=== PATIENT | female | born 1955 | race American Indian/Alaskan Native ===

== ENCOUNTER 2021-07-20 06:22 | Inpatient (IN) | payer MEDICARE ==
[2021-07-20 08:09] LABS: Hematocrit 37.6 % (30.3-42.9); Hemoglobin 12.5 gm/dl (10.1-14.3); Mean Corpuscular HGB Conc 33 % (30-34); Mean Corpuscular Volume 81 fl (79-97); Platelet Count 190 K/mm3 (140-440); Red Blood Count 4.65 M/mm3 (3.65-5.03)
--- NOTE | 2021-07-20 08:16 | XRay Report ---
CHEST 2 VIEWS INDICATION: Chest Pain. COMPARISON: 05/31/2018 FINDINGS: Support devices: None. Heart: Heart size is at the upper limits of normal. Lungs/pleura: Small to medium left pleural effusion and trace right pleural effusion are identified. There are minor bibasilar atelectatic changes but no obvious infiltrate. No pneumothorax. Additional findings: None. IMPRESSION: Borderline heart size. Bilateral pleural effusions as described. Consider mild volume overload or CHF . Signer Name: Hany Ceballos Jr, MD Signed: 07/20/2021 8:12 AM Workstation Name: [id number]
[2021-07-20 08:20] LABS: INR 1.11 (0.87-1.13)
[2021-07-20 08:36] LABS: Albumin 4.1 g/dL (3.9-5); Calcium 9.1 mg/dL (8.4-10.2)
[2021-07-20 08:47] LABS: Chol/HDL Ratio 4.28 %
[2021-07-20 08:58] LABS: Red Cell Distribution Width 20.4 % (13.2-15.2)
[2021-07-20] MEDS ORDERED: ONDANSETRON 4 MG/2 ML INJ IV ONE (09:18)
[2021-07-20] MEDS ORDERED: FAMOTIDINE 20 MG/2 ML INJ IV ONE ×2 (09:18→14:00)
--- NOTE | 2021-07-20 09:27 | Emergency Department Report ---
ED General Adult HPI - General Chief complaint: Chest Pain Stated complaint: CHEST PAIN PUI?: No Time Seen by Provider: 07/20/21 09:05 Source: patient, RN notes reviewed, old records reviewed Mode of arrival: Wheelchair Limitations: No Limitations - History of Present Illness Initial comments: The patient was evaluated in the emergency department for symptoms described in the history of present illness. He/she was evaluated in the context of the global COVID-19 pandemic, which necessitated consideration that the patient samreen ht be at risk for infection with the virus that causes COVID-19. Institutional protocols and algorithms that pertain to the evaluation of patients at risk for COVID-19 are in a state of rapid change based on information released by regulatory bodies including the CDC and federal and state organizations. These policies and algorithms were followed during the patient's care in the emergency department. Please note that these policies, procedures and recommendations changed on a rapid basis. Primary CARE doctor: Dr Berry Nephrology: Dr Colbert Cardiology: Dr Baldwin Past medical history: Chronic renal insufficiency, hypertension (on aspirin, Norvasc, Coreg), CHF, unknown ejection fraction, known history of saccular abdominal aortic aneurysm, does not currently have a vascular surgeon. The patient is a 65-year-old female who presents to the ER with a complaint of nausea, vomiting, chest pain The patient states her chest pain is left-sided and radiates to her arm and neck. There is mild nausea, vomiting, the patient denies diaphoresis. The patient denies leg pain or leg swelling. She reports that she had a cardiac stress test around 4 months ago. She thinks it was unremarkable. She reports that she recently went to one of the [facility], and "they did not do anything for me." The patient reports that she has nausea and vomiting, and then "my heart starts to hurt me." On review of systems, no Covid symptoms, has not received COVID-19 vaccination, no dysuria, does endorse abdominal pain and cramping. -: Gradual, hour(s), days(s) Location: chest Radiation: neck, extremity Quality: aching Consistency: intermittent Improves with: medication, rest Worsens with: movement - Related Data Previous Rx's Medication Instructions Recorded Last Taken Type AtorvaSTATin [Lipitor] 40 mg PO QHS 30 Days #30 tab 07/23/21 Unknown Rx Docusate Sodium [Colace CAP] 100 mg PO BID 30 Days #60 cap 07/23/21 Unknown Rx Furosemide [Lasix] 20 mg PO BID 30 Days #60 tablet 07/23/21 Unknown Rx ISOSORBIDE MONOnitrate [Imdur ER] 30 mg PO QDAY 30 Days #30 tab 07/23/21 Unknown Rx Spironolactone [Aldactone] 25 mg PO QDAY 30 Days #30 tablet 07/23/21 Unknown Rx calcitrioL [Rocaltrol] 0.5 mcg PO QDAY 30 Days #30 cap 07/23/21 Unknown Rx carvediloL [Coreg] 3.125 mg PO BID 30 Days #60 tablet 07/23/21 Unknown Rx hydrALAZINE [Apresoline TAB] 25 mg PO Q8HR 30 Days #90 tab 07/23/21 Unknown Rx Allergies Allergy/AdvReac Type Severity Reaction Status Date / Time morphine Allergy Unknown Verified 07/20/21 07:16 Penicillins Allergy Itching Verified 07/20/21 07:16 ED Review of Systems ROS: Stated complaint: CHEST PAIN Other details as noted in HPI Constitutional: malaise. denies: fever Eyes: denies: eye discharge ENT: denies: epistaxis Respiratory: shortness of breath Cardiovascular: chest pain Gastrointestinal: abdominal pain, nausea, vomiting. denies: diarrhea Genitourinary: denies: dysuria Musculoskeletal: myalgia Neurological: weakness Psychiatric: anxiety Hematological/Lymphatic: denies: easy bleeding ED Past Medical Hx - Past Medical History Hx Hypertension: Yes Hx Heart Attack/AMI: No (stent x1) Hx Congestive Heart Failure: No Hx Diabetes: No Hx Deep Vein Thrombosis: No Hx Renal Disease: Yes (left kidney no function, right has decreased function) Hx Asthma: No Hx COPD: No Hx HIV: No Additional medical history: gout, water retention - Surgical History Hx Coronary Stent: No Hx Pacemaker: No Hx Internal Defibrillator: No - Social History Smoking Status: Current Every Day Smoker - Medications Home Medications: Home Medications Medication Instructions Recorded Confirmed Last Taken Type AtorvaSTATin [Lipitor] 40 mg PO QHS 30 Days #30 tab 07/23/21 Unknown Rx Docusate Sodium [Colace CAP] 100 mg PO BID 30 Days #60 cap 07/23/21 Unknown Rx Furosemide [Lasix] 20 mg PO BID 30 Days #60 tablet 07/23/21 Unknown Rx ISOSORBIDE MONOnitrate [Imdur ER] 30 mg PO QDAY 30 Days #30 tab 07/23/21 Unknown Rx Spironolactone [Aldactone] 25 mg PO QDAY 30 Days #30 tablet 07/23/21 Unknown Rx calcitrioL [Rocaltrol] 0.5 mcg PO QDAY 30 Days #30 cap 07/23/21 Unknown Rx carvediloL [Coreg] 3.125 mg PO BID 30 Days #60 tablet 07/23/21 Unknown Rx hydrALAZINE [Apresoline TAB] 25 mg PO Q8HR 30 Days #90 tab 07/23/21 Unknown Rx ED Physical Exam - General Limitations: Physical Limitation General appearance: alert, anxious - Head Head exam: Present: atraumatic, normocephalic - Eye Eye exam: Present: normal appearance, EOMI. Absent: nystagmus - ENT ENT exam: Present: normal exam, normal orophraynx, mucous membranes moist, normal external ear exam - Neck Neck exam: Present: normal inspection, full ROM. Absent: tenderness, meningismus - Respiratory Respiratory exam: Present: rales, chest wall tenderness - Cardiovascular Cardiovascular Exam: Present: normal rhythm, bradycardia, normal heart sounds. Absent: tachycardia, irregular rhythm, systolic murmur, diastolic murmur, rubs, gallop - GI/Abdominal GI/Abdominal exam: Present: soft, tenderness, other (There is lower abdominal tenderness. There is no rebound, guarding or peritoneal). Absent: distended, guarding, rebound, rigid, normal bowel sounds, pulsatile mass - Extremities Exam Extremities exam: Present: normal inspection, other (2+ pulses noted in the bilateral upper and lower extremities. There is no palpable cord. negative Homans sign. Muscular compartments are soft. The pelvis is stable.). Absent: tenderness, joint swelling, calf tenderness - Back Exam Back exam: Present: normal inspection. Absent: tenderness, CVA tenderness (R), CVA tenderness (L), paraspinal tenderness, vertebral tenderness - Neurological Exam Neurological exam: Present: alert, oriented X3, normal gait, other (No facial droop. Tongue midline. Extraocular movements intact bilaterally. Facial sensation intact to light touch in V1, V2, V3 distribution bilaterally. 5 and a 5 strength in 4 extremities. Sensation intact to light touch in 4 extremities.). Absent: motor sensory deficit - Psychiatric Psychiatric exam: Present: anxious - Skin Skin exam: Present: warm, dry, intact, normal color. Absent: rash ED Course Vital Signs 07/20/21 07/20/21 07/20/21 08:44 08:45 09:25 Temperature 97.6 F Pulse Rate 91 H 98 H Respiratory 21 15 Rate Blood Pressure 132/71 Blood Pressure [Left] O2 Sat by Pulse 100 100 Oximetry 07/20/21 07/20/21 07/20/21 13:05 13:15 13:30 Temperature Pulse Rate 61 54 L Respiratory 26 H 15 Rate Blood Pressure Blood Pressure [Left] O2 Sat by Pulse 92 94 91 Oximetry 07/20/21 07/20/21 07/20/21 14:00 14:15 14:31 Temperature Pulse Rate 61 77 Respiratory 22 15 Rate Blood Pressure 166/93 175/78 Blood Pressure [Left] O2 Sat by Pulse 93 93 94 Oximetry 07/20/21 07/20/21 07/20/21 14:45 15:01 15:15 Temperature Pulse Rate 53 L 53 L 49 L Respiratory 13 10 L 20 Rate Blood Pressure 166/93 163/74 175/78 Blood Pressure [Left] O2 Sat by Pulse 93 93 89 Oximetry 07/20/21 07/20/21 07/20/21 15:31 15:45 16:01 Temperature Pulse Rate 61 58 L Respiratory 15 12 Rate Blood Pressure 169/64 163/74 170/68 Blood Pressure [Left] O2 Sat by Pulse 99 94 87 Oximetry 07/20/21 07/20/21 07/20/21 16:15 16:31 16:45 Temperature Pulse Rate 64 Respiratory 26 H Rate Blood Pressure 169/64 158/86 170/68 Blood Pressure [Left] O2 Sat by Pulse 92 92 89 Oximetry 07/20/21 07/20/21 07/20/21 17:01 17:15 17:31 Temperature Pulse Rate 85 Respiratory 24 Rate Blood Pressure 175/91 158/86 158/86 Blood Pressure [Left] O2 Sat by Pulse 95 92 92 Oximetry 07/20/21 07/20/21 07/20/21 17:45 18:01 18:15 Temperature Pulse Rate 65 61 57 L Respiratory 23 16 27 H Rate Blood Pressure 175/91 167/98 167/98 Blood Pressure [Left] O2 Sat by Pulse 97 96 87 Oximetry 07/20/21 07/20/21 07/20/21 18:31 18:45 19:01 Temperature Pulse Rate 61 65 56 L Respiratory 13 14 12 Rate Blood Pressure 165/95 167/98 162/82 Blood Pressure [Left] O2 Sat by Pulse 96 97 91 Oximetry 07/20/21 07/20/21 07/20/21 19:15 19:31 19:45 Temperature Pulse Rate 55 L 59 L 57 L Respiratory 12 24 19 Rate Blood Pressure 165/95 151/71 151/71 Blood Pressure [Left] O2 Sat by Pulse 90 92 94 Oximetry 07/20/21 07/20/21 07/20/21 20:01 20:15 20:31 Temperature Pulse Rate 62 57 L 55 L Respiratory 17 16 12 Rate Blood Pressure 162/78 162/78 162/78 Blood Pressure [Left] O2 Sat by Pulse 96 92 88 Oximetry 07/20/21 07/20/21 07/20/21 20:45 21:01 21:15 Temperature Pulse Rate 56 L 54 L 55 L Respiratory 15 12 17 Rate Blood Pressure 162/78 162/78 162/78 Blood Pressure [Left] O2 Sat by Pulse 82 L 88 89 Oximetry 07/20/21 07/20/21 07/20/21 21:31 21:45 22:01 Temperature Pulse Rate 57 L 58 L 61 Respiratory 14 11 L 11 L Rate Blood Pressure 162/78 162/78 162/78 Blood Pressure [Left] O2 Sat by Pulse 89 91 92 Oximetry 07/20/21 07/20/21 07/20/21 22:09 22:15 22:31 Temperature Pulse Rate 61 64 57 L Respiratory 21 13 Rate Blood Pressure 156/85 156/85 163/84 Blood Pressure [Left] O2 Sat by Pulse 92 93 Oximetry 07/20/21 07/20/21 07/20/21 22:35 22:44 22:45 Temperature Pulse Rate 56 L 61 Respiratory 12 14 Rate Blood Pressure 163/84 163/84 Blood Pressure [Left] O2 Sat by Pulse 93 95 93 Oximetry 07/20/21 07/20/21 07/20/21 23:01 23:15 23:31 Temperature Pulse Rate 60 64 62 Respiratory 13 14 12 Rate Blood Pressure 138/67 138/67 140/68 Blood Pressure [Left] O2 Sat by Pulse 93 92 92 Oximetry 07/20/21 07/21/21 07/21/21 23:45 00:01 00:15 Temperature Pulse Rate 63 61 62 Respiratory 13 14 15 Rate Blood Pressure 140/68 150/75 150/75 Blood Pressure [Left] O2 Sat by Pulse 95 94 94 Oximetry 07/21/21 07/21/21 07/21/21 00:31 00:45 01:01 Temperature Pulse Rate 62 61 65 Respiratory 13 12 15 Rate Blood Pressure 135/64 135/64 143/70 Blood Pressure [Left] O2 Sat by Pulse 94 94 93 Oximetry 07/21/21 07/21/21 07/21/21 01:15 01:31 01:45 Temperature Pulse Rate 62 63 64 Respiratory 13 15 14 Rate Blood Pressure 143/70 134/75 134/75 Blood Pressure [Left] O2 Sat by Pulse 93 93 93 Oximetry 07/21/21 07/21/21 07/21/21 02:01 02:15 02:31 Temperature Pulse Rate 66 66 65 Respiratory 17 16 15 Rate Blood Pressure 151/71 151/71 159/78 Blood Pressure [Left] O2 Sat by Pulse 93 95 94 Oximetry 07/21/21 07/21/21 07/21/21 02:45 03:01 03:15 Temperature Pulse Rate 65 67 71 Respiratory 14 20 21 Rate Blood Pressure 159/78 146/118 146/118 Blood Pressure [Left] O2 Sat by Pulse 92 99 98 Oximetry 07/21/21 07/21/21 07/21/21 03:31 03:45 04:01 Temperature Pulse Rate 71 70 68 Respiratory 18 18 17 Rate Blood Pressure 144/71 144/71 147/66 Blood Pressure [Left] O2 Sat by Pulse 92 90 92 Oximetry 07/21/21 07/21/21 07/21/21 04:15 04:31 04:45 Temperature Pulse Rate 74 64 67 Respiratory 18 15 16 Rate Blood Pressure 147/66 147/66 147/66 Blood Pressure [Left] O2 Sat by Pulse 90 90 86 Oximetry 07/21/21 07/21/21 07/21/21 05:01 05:15 05:31 Temperature Pulse Rate 66 66 67 Respiratory 32 H 15 15 Rate Blood Pressure 126/52 126/52 119/62 Blood Pressure [Left] O2 Sat by Pulse 88 88 87 Oximetry 07/21/21 07/21/21 07/21/21 05:45 05:47 06:01 Temperature Pulse Rate 69 66 71 Respiratory 14 14 Rate Blood Pressure 119/62 126/52 139/68 Blood Pressure [Left] O2 Sat by Pulse 88 90 Oximetry 07/21/21 07/21/21 07/21/21 06:15 06:31 06:45 Temperature Pulse Rate 69 68 66 Respiratory 14 17 16 Rate Blood Pressure 139/68 118/45 118/45 Blood Pressure [Left] O2 Sat by Pulse 89 91 94 Oximetry 07/21/21 07/21/21 07/21/21 07:01 09:09 09:11 Temperature Pulse Rate 66 80 Respiratory 17 16 Rate Blood Pressure 115/56 Blood Pressure 134/60 [Left] O2 Sat by Pulse 90 100 100 Oximetry 07/21/21 07/21/21 07/21/21 11:30 15:31 15:41 Temperature Pulse Rate 71 Respiratory Rate Blood Pressure 159/78 132/65 132/65 Blood Pressure [Left] O2 Sat by Pulse 95 92 Oximetry 07/21/21 07/21/21 07/21/21 15:51 16:01 16:11 Temperature Pulse Rate Respiratory Rate Blood Pressure 130/72 130/72 130/72 Blood Pressure [Left] O2 Sat by Pulse 95 94 97 Oximetry 07/21/21 07/21/21 07/21/21 16:21 16:31 16:41 Temperature Pulse Rate Respiratory Rate Blood Pressure 114/92 114/92 114/92 Blood Pressure [Left] O2 Sat by Pulse 95 96 94 Oximetry 07/21/21 07/21/21 07/21/21 16:51 17:01 17:11 Temperature Pulse Rate Respiratory Rate Blood Pressure 144/78 144/78 144/78 Blood Pressure [Left] O2 Sat by Pulse 96 92 93 Oximetry 07/21/21 07/21/21 07/21/21 17:21 17:31 17:41 Temperature Pulse Rate Respiratory Rate Blood Pressure 148/79 148/79 148/79 Blood Pressure [Left] O2 Sat by Pulse 96 96 92 Oximetry 07/21/21 07/21/21 07/21/21 17:51 18:01 18:11 Temperature Pulse Rate Respiratory Rate Blood Pressure 137/66 137/66 137/66 Blood Pressure [Left] O2 Sat by Pulse 94 91 95 Oximetry 07/21/21 07/21/21 07/21/21 18:21 18:31 18:41 Temperature Pulse Rate Respiratory Rate Blood Pressure 139/75 139/75 139/75 Blood Pressure [Left] O2 Sat by Pulse 94 93 95 Oximetry 07/21/21 07/21/21 07/21/21 18:51 19:01 19:11 Temperature Pulse Rate Respiratory Rate Blood Pressure 146/72 146/72 146/72 Blood Pressure [Left] O2 Sat by Pulse 97 96 95 Oximetry 07/21/21 07/21/21 07/21/21 19:21 19:30 19:40 Temperature Pulse Rate Respiratory Rate Blood Pressure 135/72 135/72 135/72 Blood Pressure [Left] O2 Sat by Pulse 95 92 95 Oximetry 07/21/21 07/21/21 07/21/21 19:53 20:01 20:11 Temperature Pulse Rate Respiratory Rate Blood Pressure 135/72 135/72 135/72 Blood Pressure [Left] O2 Sat by Pulse 98 93 91 Oximetry 07/21/21 07/21/21 07/21/21 20:21 20:31 20:41 Temperature Pulse Rate Respiratory Rate Blood Pressure 135/72 135/72 135/72 Blood Pressure [Left] O2 Sat by Pulse 93 96 95 Oximetry 07/21/21 07/21/21 07/21/21 20:51 21:01 21:11 Temperature Pulse Rate 60 59 L 59 L Respiratory 17 18 21 Rate Blood Pressure 150/77 150/77 150/77 Blood Pressure [Left] O2 Sat by Pulse 91 92 98 Oximetry 07/21/21 07/21/21 07/21/21 21:21 21:31 21:41 Temperature Pulse Rate 58 L 66 52 L Respiratory 20 26 H 22 Rate Blood Pressure 142/68 142/68 142/68 Blood Pressure [Left] O2 Sat by Pulse 98 92 93 Oximetry 07/21/21 07/21/21 07/21/21 21:51 22:01 22:11 Temperature Pulse Rate 55 L 62 58 L Respiratory 12 23 16 Rate Blood Pressure 135/63 135/63 135/63 Blood Pressure [Left] O2 Sat by Pulse 97 84 93 Oximetry 07/21/21 07/21/21 07/21/21 22:21 22:31 22:41 Temperature Pulse Rate 58 L 56 L 57 L Respiratory 18 16 19 Rate Blood Pressure 153/83 153/83 153/83 Blood Pressure [Left] O2 Sat by Pulse 92 93 96 Oximetry 07/21/21 07/21/21 07/21/21 22:51 23:01 23:11 Temperature Pulse Rate 59 L 64 53 L Respiratory 14 23 17 Rate Blood Pressure 144/77 144/77 144/77 Blood Pressure [Left] O2 Sat by Pulse 96 88 98 Oximetry 07/21/21 07/21/21 07/21/21 23:20 23:31 23:41 Temperature Pulse Rate 48 L 60 59 L Respiratory 19 21 18 Rate Blood Pressure 150/77 141/67 141/67 Blood Pressure [Left] O2 Sat by Pulse 97 95 97 Oximetry - Reevaluation(s) Reevaluation #1: 07/20/21 09:28 Differential diagnosis, including but not limited to: Obstruction, colitis, diverticulitis, urinary tract infection, GERD, gastritis, hiatal hernia, pneumonia, costochondritis, coronary artery disease, azotemia, uremia Assessment and plan: 65-year-old female with known renal insufficiency, with chest pain, nausea, vomiting, and abdominal pain. She is not currently tachycardic, tachypneic. She is not hypoxic. This is unlikely to be a pulmonary embolism. She has equal pulses in the upper and lower extremities, and no pulsatile abdominal mass. She has a known history of saccular lower abdominal aortic aneurysm. She has an appropriate blood pressure. She also has crackles and rales. Suspect component of azotemia, uremia, and possible cardiorenal syndrome. We will treat her pain, administer high-dose diuretics, obtain CT scan of the abdomen pelvis without IV contrast, request urinalysis. Her initial EKG is abnormal with a known first-degree AV block, and a prolonged QTC. Its limited by motion artifact. Have requested repeat EKG. Have requested temperature. I recommended admission to the medical service once initial diagnostics have resulted. I discussed this plan of care with the patient. She has articulated understanding. She is agreeable to this plan of care.. 07/20/21 09:29 07/20/21 10:37 CT scan abdomen pelvis suggest pleural effusions, with a possible loculated component. Her infrarenal saccular aneurysm is now 3.5 cm. High-dose Lasix has been ordered. Fluoroquinolones contraindicated given AAA. As a third-generation cephalosporin, ceftriaxone is structurally dissimilar to penicillin, and is statistically unlikely to cause anaphylactic or anaphylactoid reaction. We will therefore medicate empirically with ceftriaxone and azithromycin. Contacted vascular surgeon on-call, Dr. Douglas. Have discussed the patient's history, physical, laboratory studies, and radiology studies. The patient is likely presenting with natural history of untreated AAA, and it does not require emergent intervention at this time. Vascular surgery will follow in consultation, however, they do request nonemergent CT imaging with contrast to better evaluate this patient's vascular anatomy. I will defer to the inpatient team to acquire this study. Have been contacted nephrology on-call, Dr. Tiffany Goyal We discussed the patient's history, physical, laboratory studies and imaging studies. His group will follow in consultation. Assessment and plan: 65-year-old female, with what appears to be end-stage renal disease at this point in time, with probable cardiorenal syndrome, abdominal pain, chest pain, and fluid overload, requires admission to the medical service for medical optimization, cardiac risk ratification, and multiple consultations, including hospital medicine, nephrology, and vascular surgery. Reevaluation #2: 07/20/21 10:51 Extensive discussion had with patient regarding findings and my plan of care. She is agreeable. Her allergy to morphine is "not like the way it makes me feel." The patient denies anaphylactic or anaphylactoid reactions to morphine. She states "I can take any pain medication but morphine. 0.25 mg of hydromorphone ordered. Hospital physician will be paged to arrange admission. 07/20/21 11:20 Dr Hogue to admit to [facility] ED Medical Decision Making - Lab Data Result diagrams: 07/20/21 07:59 07/23/21 05:02 Vital Signs 07/20/21 07/20/21 08:44 08:45 Pulse Rate 91 H 98 H Respiratory 21 15 Rate Blood Pressure 132/71 O2 Sat by Pulse 100 100 Oximetry Vital Signs 07/20/21 07/20/21 08:44 08:45 Pulse Rate 91 H 98 H Respiratory 21 15 Rate Blood Pressure 132/71 O2 Sat by Pulse 100 100 Oximetry Lab Results 07/20/21 07/20/21 07/20/21 Range/Units 07:59 07:59 07:59 WBC 3.1 L (4.5-11.0) K/mm3 RBC 4.65 (3.65-5.03) M/mm3 Hgb 12.5 (10.1-14.3) gm/dl Hct 37.6 (30.3-42.9) % MCV 81 (79-97) fl MCH 27 L (28-32) pg MCHC 33 (30-34) % RDW 20.4 H (13.2-15.2) % Plt Count 190 (140-440) K/mm3 PT 14.8 (12.2-14.9) Sec. INR 1.11 (0.87-1.13) Sodium 139 (137-145) mmol/L Potassium 4.0 (3.6-5.0) mmol/L Chloride 106.8 (98-107) mmol/L Carbon Dioxide 20 L (22-30) mmol/L Anion Gap 16 mmol/L BUN 53 H (7-17) mg/dL Creatinine 4.2 H (0.6-1.2) mg/dL Estimated GFR 13 ml/min BUN/Creatinine Ratio 13 % Glucose 100 (65-100) mg/dL Calcium 9.1 (8.4-10.2) mg/dL Total Bilirubin 0.50 (0.1-1.2) mg/dL AST 14 (5-40) units/L ALT 10 (7-56) units/L Alkaline Phosphatase 81 (35-129) units/L Troponin T 0.035 H (0.00-0.029) ng/mL Total Protein 6.7 (6.3-8.2) g/dL Albumin 4.1 (3.9-5) g/dL Albumin/Globulin Ratio 1.6 % Triglycerides 66 (2-149) mg/dL Cholesterol 210 H (50-199) mg/dL LDL Cholesterol Direct 161 H (50-130) mg/dL HDL Cholesterol 49 (40-59) mg/dL Cholesterol/HDL Ratio 4.28 % - EKG Data -: EKG Interpreted by [facility] - EKG Data 07/20/21 09:24 The EKG today is interpreted at 07: 2 5 AM This is a sinus rhythm, bradycardia, with a rate of 55 bpm. There is a normal axis, there is a first-degree AV block, and a prolonged QTC. There is significant motion artifact. This is an abnormal EKG. This is not a STEMI. When compared to prior EKG from 05/31/2018 First-degree AV block is unchanged. Prolonged QTC is unchanged. Pseudonormalized T waves. - Radiology Data Radiology results: pending, report reviewed, image reviewed CHEST 2 VIEWS INDICATION: Chest Pain. COMPARISON: 05/31/2018 FINDINGS: Support devices: None. Heart: Heart size is at the upper limits of normal. Lungs/pleura: Small to medium left pleural effusion and trace right pleural effusion are identified. There are minor bibasilar atelectatic changes but no obvious infiltrate. No pneumothorax. Additional findings: None. IMPRESSION: Borderline heart size. Bilateral pleural effusions as described. Consider mild volume overload or CHF. Signer Name: Hany Ceballos Jr, MD Signed: 07/20/2021 7:12 AM Workstation Name: [id number] [facility] [address] [place] [address] Cat Scan Report Signed Patient: MARY LOU JAMES MR#: [id number] 151 : 1955 Acct:[id number] Age/Sex: 62 / F ADM Date: 05/31/18 Loc: ED Attending Dr: Ordering Physician: KAITLIN ROSE MD Date of Service: 05/31/18 Procedure(s): CT abdomen pelvis wo con Accession Number(s): [id number] cc: KAITLIN ROSE MD CT ABDOMEN PELVIS WITHOUT CONTRAST: HISTORY: abdominal pain. COMPARISON: 10/15/13. TECHNIQUE: Helical CT in 1.25mm intervals without IV contrast. Sagittal and coronal reconstructions. FINDINGS: Lung bases: Mild cardiomegaly and small bilateral pleural effusions have developed. Liver: Unremarkable. Biliary system: Cholecystectomy. No biliary dilatation. Pancreas: Normal. Spleen: Normal. Kidneys/ureters/bladder: The kidneys appear borderline atrophic. No focal renal lesion, nephrolithiasis or hydronephrosis. The ureters and bladder are unremarkable. Adrenal glands: Normal. Aorta: A saccular outpouching along the left lateral border of the distal aorta has developed since the previous exam. This appears to represent a saccular aneurysm measuring 2.4 cm in diameter. There is no evidence for rupture. Mild atherosclerotic disease in the distal aorta and bilateral iliac systems is again noted. Intestines: Unremarkable given no oral contrast was administered. Mild diverticulosis of the colon is noted. Appendix: Normal. Pelvic viscera: Normal. Ascites: None. Adenopathy: None. Musculoskeletal: Intact. IMPRESSION: Mild CHF. No acute process is appreciated. Saccular aneurysm of the distal abdominal aorta. Consider further evaluation with contrast examination. Chronic renal parenchymal disease. Mild diverticulosis of the colon. Transcribed By: TTR Dictated By: HANY CEBALLOS JR, MD Electronically Authenticated By: HANY CEBALLOS JR, MD Signed Date/Time: 05/31/18 1202 DD/ 1158 TD/TT: 05/31/18 1202 [facility] [address] [id number] Cat Scan Report Signed Patient: MARY LOU JAMES MR#: [id number] 151 : 1955 Acct:[id number] Age/Sex: 65 / F ADM Date: 07/20/21 Loc: ED Attending Dr: Ordering Physician: PA DAWKINS MD Date of Service: 07/20/21 Procedure(s): CT abdomen pelvis wo con Accession Number(s): [id number] cc: PA DAWKINS MD CT ABDOMEN AND PELVIS WITHOUT CONTRAST INDICATION / CLINICAL INFORMATION: abd pain n/v. TECHNIQUE: Axial CT images were obtained through the abdomen and pel vis without IV contrast. All CT scans at this location are performed using CT dose reduction for ALARA by means of automated exposure control. COMPARISON: CT from 05/31/2018. FINDINGS: LOWER CHEST: Heart is enlarged with interlobular septal thickening. Asymmetric airspace opacity within the lingula and left lower lobe may reflect volume loss or infiltrate. Small moderate right and small left pleural effusions. The left pleural effusion appears partially loculated. LIVER: No significant abnormality GALLBLADDER/BILIARY TREE: Cholecystectomy. PANCREAS: No significant abnormality SPLEEN: No significant abnormality ADRENALS: No significant abnormality KIDNEYS / URETER: There is bilateral renal atrophy. Kidneys demonstrate otherwise unremarkable unenhanced appearance. There is no acute abnormality. URINARY BLADDER: No significant abnormality REPRODUCTIVE ORGANS: No significant abnormality STOMACH / BOWEL: Colonic diverticulosis without evidence of diverticulitis. Small bowel is normal in caliber. The appendix is normal in caliber. LYMPH NODES: No significant adenopathy. 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 OTHER: No free air, free fluid, or focal fluid collection is identified. SKELETAL SYSTEM: No acute osseous findings. IMPRESSION: 1. CHF/volume overload with bibasilar pleural effusions and interstitial edema. The left pleural effusion appears partially loculated, and there is asymmetric consolidation within the left lower lobe and lingula. Recommend correlation for superimposed infiltrate. 2. No acute abnormality of the abdomen or pelvis. 3. Interval enlargement in previously described prominent saccular aneurysm arising from the infrarenal abdominal aorta (now measuring 3.5 cm; previously measuring 2.5 cm in 2018). Surgical consultation is recommended. 4. Other incidental findings as above. Signer Name: Dao Osman MD Signed: 07/20/2021 9:55 AM Workstation Name: [id number] Transcribed By: JS Dictated By: DAO OSMAN MD Electronically Authenticated By: DAO OSMAN MD Signed Date/Time: 07/20/21954 DD/ 6 Critical Care Time: Yes Critical care time in (mins) excluding proc time.: 35 Critical care attestation.: If time is entered above; I have spent that time in minutes in the direct care of this critically ill patient, excluding procedure time. ED Disposition Clinical Impression: Elevated troponin, Abdominal pain, Nausea and vomiting, CKD (chronic kidney disease), Chest pain, Pleural effusion, Saccular aneurysm CHF (congestive heart failure) Qualifiers: Heart failure type: systolic Heart failure chronicity: acute Qualified Code(s): I50.21 - Acute systolic (congestive) heart failure Disposition: ADMITTED INPATIENT Is pt being admited?: Yes Does the pt Need Aspirin: Yes Condition: Serious Heart Score - HEART Score History: Moderately suspicious EKG: Non-specific Age: 45-65 Risk factors: 1-2 risk factors Troponin: 1-3x normal limit HEART Score: 5 - EKG Read Time Time EKG Completed: 07:30 EKG Read Time: 07:30 - Critical Actions Critical Actions: 4-6 pts:12-16.6% risk of adverse cardiac event. Should be admitted
[2021-07-20] MEDS ORDERED: FUROSEMIDE 40 MG/4 ML INJ IV ONE (09:31)
[2021-07-20] MEDS ORDERED: ASPIRIN 81 MG TAB CHEW PO ONE ×2 (09:32→14:00)
--- NOTE | 2021-07-20 09:59 | Cat Scan Report ---
CT ABDOMEN AND PELVIS WITHOUT CONTRAST INDICATION / CLINICAL INFORMATION: abd pain n/v. TECHNIQUE: Axial CT images were obtained through the abdomen and pelvis without IV contrast. All CT scans at this location are performed using CT dose reduction for ALARA by means of automated exposure control. COMPARISON: CT from 05/31/2018. FINDINGS: LOWER CHEST: Heart is enlarged with interlobular septal thickening. Asymmetric airspace opacity withi n the lingula and left lower lobe may reflect volume loss or infiltrate. Small moderate right and sma ll left pleural effusions. The left pleural effusion appears partially loculated. LIVER: No significant abnormality GALLBLADDER/BILIARY TREE: Cholecystectomy. PANCREAS: No significant abnormality SPLEEN: No significant abnormality ADRENALS: No significant abnormality KIDNEYS / URETER: There is bilateral renal atrophy. Kidneys demonstrate otherwise unremarkable unenha nced appearance. There is no acute abnormality. URINARY BLADDER: No significant abnormality REPRODUCTIVE ORGANS: No significant abnormality STOMACH / BOWEL: Colonic diverticulosis without evidence of diverticulitis. Small bowel is normal in caliber. The appendix is normal in caliber. LYMPH NODES: No significant adenopathy. VASCULATURE: Interval enlargement in previously described saccular aneurysm arising from the left asp ect of the infrarenal abdominal aorta, now measuring 3.5 cm in AP dimension (series 2 image 108); pre viously measured 2.[address] from 2018. OTHER: No free air, free fluid, or focal fluid collection is identified. SKELETAL SYSTEM: No acute osseous findings. IMPRESSION: 1. CHF/volume overload with bibasilar pleural effusions and interstitial edema. The left pleural effu lolita appears partially loculated, and there is asymmetric consolidation within the left lower lobe an d lingula. Recommend correlation for superimposed infiltrate. 2. No acute abnormality of the abdomen or pelvis. 3. Interval enlargement in previously described prominent saccular aneurysm arising from the infraren al abdominal aorta (now measuring 3.5 cm; previously measuring 2.5 cm in 2018). Surgical consultation is recommended. 4. Other incidental findings as above. Signer Name: Ricky Osman MD Signed: 07/20/2021 9:55 AM Workstation Name: [id number]
[2021-07-20] MEDS ORDERED: AZITHROMYCIN/NS 500 MG/250 ML 500 MG/250 ML BAG IV ONE ×2 (10:13→14:00)
[2021-07-20] MEDS ORDERED: cefTRIAXone/NS 1 GM/50 ML 1 GM/50 ML BAG IV ONE ×2 (10:13→14:00)
[2021-07-20] MEDS ORDERED: HYDROmorphone 1 MG/1 ML INJ IV ONE (10:50)
--- NOTE | 2021-07-20 11:22 | Consultation ---
History of Present Illness - Reason for Consult Consult date: 07/20/21 chronic renal failure - History of Present Illness This is a 65 year old female who presents to hospital with a chief complaint of chest pain, nausea and vomiting. Patient is currently in E.R being evaluated, but of note, patient's serum creatinine is noted to be elevated at 4.3 with a GFR level of 13 ml/min. Patient's fender mechanic apprentice outpatiently is Dr. Colbert. Patient's serum creatinine was 3.8 and 3.9 in May 2018. Patient's CXR shows Bilateral Plueral Effusions, mild volume overload or CHF. We are being consulted for management of this patient's advanced renal disease. Past History Past Medical History: heart failure, hypertension, other (hypertension, h yperlipidemia, renal failure (CKD; hx of MEÑO requiring HD (appx 4 years ago))) Medications and Allergies Allergies Allergy/AdvReac Type Severity Reaction Status Date / Time morphine Allergy Unknown Verified 07/20/21 07:16 Penicillins Allergy Itching Verified 07/20/21 07:16 Home Medications Medication Instructions Recorded Confirmed Last Taken Type AtorvaSTATin [Lipitor] 40 mg PO QHS 05/31/18 05/31/18 05/30/18 History Docusate Sodium [Colace CAP] 100 mg PO BID 05/31/18 05/31/18 05/30/18 History Metoprolol [Lopressor TAB] 25 mg PO DAILY 05/31/18 05/31/18 05/30/18 History Sodium Bicarbonate 650 mg PO BID 05/31/18 05/31/18 05/30/18 History calcitrioL [Rocaltrol] 0.5 mcg PO QDAY 05/31/18 05/31/18 05/30/18 History hydrALAZINE [Apresoline TAB] 25 mg PO Q8HR 05/31/18 05/31/18 05/30/18 History Albuterol Sulfate [Ventolin HFA] 2 puff IH Q4H PRN #1 pump 06/04/18 Unknown Rx Nicotine [Habitrol] 21 mg TD QDAY@0600 30 Days patch 06/04/18 Unknown Rx Nystatin Cream [Mycostatin Cream] 1 applic TP TID 7 Days tube 06/04/18 Unknown Rx traMADoL [Ultram 50 MG tab] 50 mg PO Q12H PRN #10 tablet 06/04/18 Unknown Rx Review of Systems Constitutional: weight gain, fatigue, weakness, no fever, no chills, no sweats Ears, nose, mouth and throat: no ear pain, no ear discharge, no tinnitis, no decreased hearing, no nose pain, no nasal congestion Breasts: deferred Cardiovascular: chest pain, edema, shortness of breath, dyspnea on exertion, no orthopnea, no palpitations, no rapid/irregular heart beat, no syncope, no lightheadedness Respiratory: shortness of breath, no cough with sputum, no excessive sputum, no hemoptysis Gastrointestinal: nausea, vomiting, no constipation, no change in bowel habits, no hematemesis Genitourinary Female: no pelvic pain, no flank pain, no menorrhagia, no dysuria, no urinary frequency, no urgency, no stress incontinence, no post void dribbling Musculoskeletal: no neck stiffness, no neck pain, no shooting arm pain, no arm numbness/tingling, no low back pain Integumentary: no rash, no pruritis, no redness, no sores, no wounds Neurological: weakness, no transient paralysis, no paralysis, no parathesias, no numbness, no tingling, no seizures, no syncope Psychiatric: no anxiety, no memory loss, no change in sleep habits, no sleep disturbances, no insomnia, no hypersomnia Endocrine: no cold intolerance, no heat intolerance, no polyphagia, no excessive thirst, no polydipsia, no polyuria Hematologic/Lymphatic: no easy bruising, no easy bleeding, no lymphadenopathy Exam - Vital Signs Vital signs: Vital Signs Pulse Resp Pulse Ox 91 H 21 100 07/20/21 08:44 07/20/21 08:44 07/20/21 08:44 - General Appearance General appearance: well-developed, appears stated age, fatigue EENT: ATNC, PERRL, hearing intact, vision intact Neck: Present: neck supple Respiratory: Decreased Breath Sounds Heart: S1S2 Gastrointestinal: Present: normoactive bowel sounds Integumentary: warm and dry Neurologic: alert and oriented x3 Musculoskeletal: Present: joint swelling Results - Lab Results 07/20/21 07:59 07/20/21 07:59 Most recent lab results WBC 3.1 K/mm3 (4.5-11.0) L 07/20/21 07:59 RBC 4.65 M/mm3 (3.65-5.03) 07/20/21 07:59 Hgb 12.5 gm/dl (10.1-14.3) 07/20/21 07:59 Hct 37.6 % (30.3-42.9) 07/20/21 07:59 MCV 81 fl (79-97) 07/20/21 07:59 MCH 27 pg (28-32) L 07/20/21 07:59 MCHC 33 % (30-34) 07/20/21 07:59 RDW 20.4 % (13.2-15.2) H 07/20/21 07:59 Plt Count 190 K/mm3 (140-440) 07/20/21 07:59 PT 14.8 Sec. (12.2-14.9) 07/20/21 07:59 INR 1.11 (0.87-1.13) 07/20/21 07:59 Sodium 139 mmol/L (137-145) 07/20/21 07:59 Potassium 4.0 mmol/L (3.6-5.0) 07/20/21 07:59 Chloride 106.8 mmol/L (98-107) 07/20/21 07:59 Carbon Dioxide 20 mmol/L (22-30) L 07/20/21 07:59 Anion Gap 16 mmol/L 07/20/21 07:59 BUN 53 mg/dL (7-17) H 07/20/21 07:59 Creatinine 4.2 mg/dL (0.6-1.2) H 07/20/21 07:59 Estimated GFR 13 ml/min 07/20/21 07:59 BUN/Creatinine Ratio 13 % 07/20/21 07:59 Glucose 100 mg/dL (65-100) 07/20/21 07:59 Calcium 9.1 mg/dL (8.4-10.2) 07/20/21 07:59 Total Bilirubin 0.50 mg/dL (0.1-1.2) 07/20/21 07:59 AST 14 units/L (5-40) 07/20/21 07:59 ALT 10 units/L (7-56) 07/20/21 07:59 Alkaline Phosphatase 81 units/L (35-129) 07/20/21 07:59 Troponin T 0.028 ng/mL (0.00-0.029) 07/20/21 10:25 Total Protein 6.7 g/dL (6.3-8.2) 07/20/21 07:59 Albumin 4.1 g/dL (3.9-5) 07/20/21 07:59 Albumin/Globulin Ratio 1.6 % 07/20/21 07:59 Triglycerides 66 mg/dL (2-149) 07/20/21 07:59 Cholesterol 210 mg/dL (50-199) H 07/20/21 07:59 LDL Cholesterol Direct 161 mg/dL (50-130) H 07/20/21 07:59 HDL Cholesterol 49 mg/dL (40-59) 07/20/21 07:59 Cholesterol/HDL Ratio 4.28 % 07/20/21 07:59 Assessment and Plan Assessment: Chest Pain Nausea/Vomiting Advanced Chronic Kidney Disease, stage 4-5 Hypertension CHF AAA Plan: -Renal labs reviewed. Serum creatinine 4.3 with a GFR of 13 ml/min -Serum creatinine in May 2018 was 3.8 and 3.9, has advanced renal disease -Outpatient fender mechanic apprentice is Dr. Colbert. She states she was on dialysis temporarily 4 years ago and after her outpatient fender mechanic apprentice perfomed a 24 hour urine collection for creatinine clearance they both decided that dialysis should be terminated. Patient states that her GFR has remained at 13-14 ml/min for 4 years now and states that she is against dialysis and would only do it temporarily for no more than 4 months but overall is against dialysis -Discussed with patient that if she should receive any contrast or dye that is required for any vascular procedure, there is a strong chance that her renal function would get worse requiring hemodialysis initiation. Also explained to patient that IV fluids could not be given to prepare for such procedure in advance as she is volume overloaded and instead needs diuretic. Patient voiced understanding. States was on Lasix at home and states she skipped it some days. -CXR showed- Bilateral Pleural Effusions, mild volume overload or CHF -Start Lasix 40 mg IV daily -Obtain renal ultrasound -Obtain daily weights -Avoid nephrotoxic agents -Renally dose medications -Monitor I/O's daily -Plan of care reviewed by Dr. Downey
--- NOTE | 2021-07-20 11:32 | History and Physical Report ---
History of Present Illness Chief complaint: I am not feeling good History of present illness: 65 YO Female with HTN, HLD, CKD, Nicotine Dependence, RI, CAD S/P Stent Placement presents to ED for evaluation. Patient is reports "I am not feeling good this morning". Patient states that she has experienced generalized w eakness, nausea, chest discomfort, body aches. Patient knowledges decreased exercise tolerance, dyspnea on exertion. Patient transported to [facility] via private vehicle for further care and evaluation of the aforementioned symptoms. The patient was seen and evaluated in the emergency department. All lab and imaging studies reviewed. Patient found to have MEÑO with ATN with possible development of end-stage renal disease, metabolic acidosis, as well as clinical symptoms consistent with CHF decompensation. Patient admitted to telemetry and initiated on CHF protocol. Nephrology team consulted in ED. Cardiology team consulted in ED. vascular surgery consulted in the ED for possible dialysis catheter placement. Patient denies fever, chills, chest pain, palpitation, productive cough, skin rash, recent ill contacts, or known exposure to COVID-19. Patient has not been vaccinated against coronavirus. Past admission on 05/21/2018 reviewed. All medication listed at time of admission has been reconciled. Advanced care planning conducted in ED. Past History Past Medical History: heart failure, hypertension, hyperlipidemia, renal failure, other (hypertension, hyperlipidemia, renal failure (CKD; hx of MEÑO requiring HD (appx 4 years ago))) Past Surgical History: Other (Cardiac stent placement) Social history: , smoking. denies: alcohol abuse, prescription drug abuse Family history: hypertension Medications and Allergies Allergies Allergy/AdvReac Type Severity Reaction Status Date / Time morphine Allergy Unknown Verified 07/20/21 07:16 Penicillins Allergy Itching Verified 07/20/21 07:16 Home Medications Medication Instructions Recorded Confirmed Last Taken Type AtorvaSTATin [Lipitor] 40 mg PO QHS 05/31/18 05/31/18 05/30/18 History Docusate Sodium [Colace CAP] 100 mg PO BID 05/31/18 05/31/18 05/30/18 History Metoprolol [Lopressor TAB] 25 mg PO DAILY 05/31/18 05/31/18 05/30/18 History Sodium Bicarbonate 650 mg PO BID 05/31/18 05/31/18 05/30/18 History calcitrioL [Rocaltrol] 0.5 mcg PO QDAY 05/31/18 05/31/18 05/30/18 History hydrALAZINE [Apresoline TAB] 25 mg PO Q8HR 05/31/18 05/31/18 05/30/18 History Albuterol Sulfate [Ventolin HFA] 2 puff IH Q4H PRN #1 pump 06/04/18 Unknown Rx Nicotine [Habitrol] 21 mg TD QDAY@0600 30 Days patch 06/04/18 Unknown Rx Nystatin Cream [Mycostatin Cream] 1 applic TP TID 7 Days tube 06/04/18 Unknown Rx traMADoL [Ultram 50 MG tab] 50 mg PO Q12H PRN #10 tablet 06/04/18 Unknown Rx Review of Systems Constitutional: fatigue, weakness, other Ears, nose, mouth and throat: no ear pain, no ear discharge, no decreased hearing, no nasal congestion Breasts: no change in shape, no mass Cardiovascular: shortness of breath, dyspnea on exertion, decreased exercise tolerance Respiratory: no cough, no excessive sputum, no hemoptysis Gastrointestinal: nausea, vomiting, no abdominal pain, no diarrhea, no constipation Genitourinary Female: no pelvic pain, no flank pain, no dysuria, no urinary frequency, no urgency Rectal: no pain, no incontinence Integumentary: no rash, no redness, no wounds, no jaundice Neurological: no transient paralysis, no weakness, no numbness, no tingling, no seizures, no syncope Psychiatric: no anxiety, no change in sleep habits, no sleep disturbances, no insomnia, no hypersomnia, no change in appetite, no change in libido, no suicidal ideation, no disorientation Endocrine: no cold intolerance, no excessive thirst, no polydipsia, no polyuria, no nocturia Hematologic/Lymphatic: no easy bruising, no easy bleeding, no lymphadenopathy Allergic/Immunologic: no urticaria, no allergic rhinitis, no anaphylaxis, no an gioedema Exam - Constitutional Vitals: Temp Pulse Resp BP Pulse Ox 97.6 F 98 H 15 132/71 100 07/20/21 09:25 07/20/21 08:45 07/20/21 08:45 07/20/21 08:45 07/20/21 08:45 General appearance: Present: mild distress - EENT Eyes: Present: PERRL ENT: hearing intact, clear oral mucosa - Neck Neck: Present: supple, normal ROM - Respiratory Respiratory effort: normal Respiratory: bilateral: diminished, rales - Cardiovascular Heart Sounds: Present: S1 & S2. Absent: rub, click - Extremities Extremities: pulses symmetrical, No edema Peripheral Pulses: within normal limits - Abdominal General gastrointestinal: Present: soft, non-tender, non-distended, normal bowel sounds Female genitourinary: Present: normal - Integumentary Integumentary: Present: clear, warm, dry - Musculoskeletal Musculoskeletal: gait normal, strength equal bilaterally - Psychiatric Psychiatric: appropriate mood/affect, intact judgment & insight - Neurologic Neurologic: CNII-XII intact, moves all extremities HEART Score - HEART Score EKG: Non-specific Age: 45-65 Risk factors: 1-2 risk factors Troponin: Troponin T 0.028 ng/mL (0.00-0.029) 07/20/21 10:25 Troponin: 1-3x normal limit - Critical Actions Critical Actions: 4-6 pts:12-16.6% risk of adverse cardiac event. Should be admitted Results - Labs CBC & Chem 7: 07/20/21 07:59 07/20/21 07:59 Labs: Abnormal lab results 07/20/21 07/20/21 Range/Units 07:59 07:59 WBC 3.1 L (4.5-11.0) K/mm3 MCH 27 L (28-32) pg RDW 20.4 H (13.2-15.2) % Carbon Dioxide 20 L (22-30) mmol/L BUN 53 H (7-17) mg/dL Creatinine 4.2 H (0.6-1.2) mg/dL Troponin T 0.035 H (0.00-0.029) ng/mL Cholesterol 210 H (50-199) mg/dL LDL Cholesterol Direct 161 H (50-130) mg/dL Assessment and Plan - Patient Problems (1) CHF (congestive heart failure) Current Visit: Yes Status: Acute Qualifiers: Heart failure type: systolic Heart failure chronicity: acute Qualified Code(s): I50.21 - Acute systolic (congestive) heart failure Plan to address problem: CHF protocol: Chest x-ray, BNP, thyroid panel, magnesium level, blood pressure control, diuresis with Lasix, strict I's/O, monitor urine output every shift, daily weight, afterload reduction, cardiology team consulted. (2) ESRD (end stage renal disease) Current Visit: Yes Status: Acute Plan to address problem: Nephrology team consulted in ED, dialysis as per renal team, strict I's/O, monitor urine output every shift, avoid nephrotoxic agents. (3) Acidosis Current Visit: Yes Status: Acute Plan to address problem: Dialysis as per renal team, continue current care (4) Nicotine dependence Current Visit: Yes Status: Acute Qualifiers: Nicotine product type: cigarettes Substance use status: in withdrawal Qualified Code(s): F17.213 - Nicotine dependence, cigarettes, with withdrawal Plan to address problem: Smoking cessation counseling, nicotine patch, behavior change counseling, +15 minutes. (5) Nausea and vomiting Current Visit: Yes Status: Acute Plan to address problem: Supportive care, dialysis as per renal team, antiemetic therapy as needed. (6) DVT prophylaxis Current Visit: Yes Status: Acute Plan to address problem: SCD to bilateral lower extremities while in bed, patient is ambulatory (7) Advance care planning Current Visit: Yes Status: Acute Plan to address problem: Disease education conducted, care plan discussed, diagnosis discussed, prognosis discussed, patient is full code, patient knowledges understanding agreement with care plan, +30 minutes.
[2021-07-20] MEDS ORDERED: oxyCODONE /ACETAMINOPHEN 5-325MG TAB PO PRN (12:30)
[2021-07-20] MEDS ORDERED: ACETAMINOPHEN 325 MG TAB PO PRN (12:30)
[2021-07-20] MEDS ORDERED: ALBUTEROL 2.5 MG/3 ML NEBU IH PRN (12:30)
[2021-07-20] MEDS ORDERED: HYDROmorphone 1 MG/1 ML INJ IV PRN (12:30)
[2021-07-20] MEDS ORDERED: FUROSEMIDE 40 MG/4 ML INJ IV SCH (13:00)
--- NOTE | 2021-07-20 14:02 | Consultation ---
History of Present Illness - Reason for Consult Consult date: 07/20/21 Abdominal aortic aneurysm Requesting physician: PA DAWKINS - History of Present Illness 65 YO Female with HTN, HLD, CKD, Nicotine Dependence, [place], CAD S/P Stent Placement The patient states her chest pain is left-sided and radiates to her arm and neck. There is mild nausea, vomiting, the patient denies diaphoresis. The patient denies leg pain or leg swelling. She reports that she had a cardiac stress test around 4 months ago. She thinks it was unremarkable. She reports that she recently went to one of the [facility], and "they did not do anything for me." The patient reports that she has nausea and vomiting, and then "my heart starts to hurt me." On review of systems, no Covid symptoms, has not received COVID-19 vaccination, no dysuria, does endorse abdominal pain and cramping. -: Gradual, hour(s), days(s) Location: chest Radiation: neck, extremity Quality: aching Consistency: intermittent Improves with: medication, rest Worsens with: movement Past medical history: Chronic renal insufficiency Hypertension (on aspirin, Norvasc, Coreg) CHF, unknown ejection fraction History of saccular abdominal aortic aneurysm, does not currently have a vascular surgeon. Vascular consulted for abdominal aortic aneurysm. Patient reports that she is having chest discomfort, but denies abdominal pain. She reports low back pain, but this is predominantly in her hips. No abdominal pain radiating to the back. CT scan in 2018 demonstrates 3.9 cm infrarenal abdominal aorta, upon my measurement. Patient has heavily smoked between this time and now, and now has a CT scan demonstrating infrarenal abdominal aortic aneurysm which, upon my measurement, appears to be about 5.4 cm. Discussed with patient that given the size and the increase in size, this would benefit from endovascular treatment. Patient has a palpable right dorsalis pedis pulse with a nonpalpable left pedal pulse. She denies claudication. This is likely because she becomes short of breath and tired prior to experiencing claudication. Unfortunately, patient has chronic kidney disease which will make imaging quite complicated. This was discussed with patient. Past History Past Medical History: heart failure, hypertension, other (hypertension, hyperlipidemia, renal failure (CKD; hx of MEÑO requiring HD (appx 4 years ago))) Medications and Allergies Allergies Allergy/AdvReac Type Severity Reaction Status Date / Time morphine Allergy Unknown Verified 07/20/21 07:16 Penicillins Allergy Itching Verified 07/20/21 07:16 Home Medications Medication Instructions Recorded Confirmed Last Taken Type AtorvaSTATin [Lipitor] 40 mg PO QHS 05/31/18 05/31/18 05/30/18 History Docusate Sodium [Colace CAP] 100 mg PO BID 05/31/18 05/31/18 05/30/18 History Metoprolol [Lopressor TAB] 25 mg PO DAILY 05/31/18 05/31/18 05/30/18 History Sodium Bicarbonate 650 mg PO BID 05/31/18 05/31/18 05/30/18 History calcitrioL [Rocaltrol] 0.5 mcg PO QDAY 05/31/18 05/31/18 05/30/18 History hydrALAZINE [Apresoline TAB] 25 mg PO Q8HR 05/31/18 05/31/18 05/30/18 History Albuterol Sulfate [Ventolin HFA] 2 puff IH Q4H PRN #1 pump 06/04/18 Unknown Rx Nicotine [Habitrol] 21 mg TD QDAY@0600 30 Days patch 06/04/18 Unknown Rx Nystatin Cream [Mycostatin Cream] 1 applic TP TID 7 Days tube 06/04/18 Unknown Rx traMADoL [Ultram 50 MG tab] 50 mg PO Q12H PRN #10 tablet 06/04/18 Unknown Rx Active Meds: Active Medications Acetaminophen (Acetaminophen 325 Mg Tab) 650 mg PO Q4H PRN PRN Reason: Pain MILD(1-3)/Fever >100.5/VERA Albuterol (Albuterol 2.5 Mg/3 Ml Nebu) 2.5 mg IH Q4HRT PRN PRN Reason: Shortness Of Breath Atorvastatin Calcium (Atorvastatin 40 Mg Tab) 40 mg PO QHS ZOLTAN Calcitriol (Calcitriol 0.5 Mcg Cap) 0.5 mcg PO QDAY ZOLTAN Docusate Sodium (Docusate Sodium 100 Mg Cap) 100 mg PO BID ZOLTAN Furosemide (Furosemide 40 Mg/4 Ml Inj) 40 mg IV DAILY@0600 ZOLTAN Hydralazine HCl (Hydralazine 25 Mg Tab) 25 mg PO Q8HR ZOLTAN Hydromorphone HCl (Hydromorphone 1 Mg/1 Ml Inj) 0.5 mg IV Q24H PRN PRN Reason: Pain , Severe (7-10) Ceftriaxone Sodium (Rocephin/Ns 1 Gm/50 Ml) 1 gm in 50 mls @ 100 mls/hr IV ONCE ONE; Protocol Stop: 07/20/21 14:29 Azithromycin (Zithromax/Ns) 500 mg in 250 mls @ 250 mls/hr IV ONCE ONE; Protocol Stop: 07/20/21 14:59 Metoprolol Tartrate (Metoprolol Tartrate 25 Mg Tab) 25 mg PO DAILY ZOLTAN Nicotine (Nicotine 21 Mg/24 Hr Patch) 21 mg TD QDAY@0600 ZOLTAN Nystatin (Nystatin Cream 15 Gm Tube) 1 applic TP TID ZOLTAN Ondansetron HCl (Ondansetron 4 Mg/2 Ml Inj) 4 mg IV Q8H PRN PRN Reason: Nausea And Vomiting Oxycodone/Acetaminophen (Oxycodone /Acetaminophen 5-325mg Tab) 1 tab PO Q12H PRN PRN Reason: Pain, Moderate (4-6) Sodium Bicarbonate (Sodium Bicarbonate 650 Mg Tab) 650 mg PO BID ZOLTAN Sodium Chloride (Sodium Chloride 0.9% 10 Ml Flush Syringe) 10 ml IV BID ZOLTAN Sodium Chloride (Sodium Chloride 0.9% 10 Ml Flush Syringe) 10 ml IV PRN PRN PRN Reason: LINE FLUSH Review of Systems All systems: negative (see HPI) Exam - Constitutional Vitals: Temp Pulse Resp BP Pulse Ox 97.6 F 98 H 15 132/71 100 07/20/21 09:25 07/20/21 08:45 07/20/21 08:45 07/20/21 08:45 07/20/21 08:45 General appearance: Present: no acute distress (In wheelchair) - EENT Eyes: Present: EOM intact ENT: hearing intact - Respiratory Respiratory effort: normal - Extremities Extremities: abnormal (see HPI) - Abdominal General gastrointestinal: Present: soft, non-tender (No abdominal pain) - Psychiatric Psychiatric: appropriate mood/affect, cooperative - Neurologic Neurologic: moves all extremities Results - Labs CBC & Chem 7: 07/20/21 07:59 07/20/21 07:59 Labs: Abnormal lab results 07/20/21 07/20/21 Range/Units 07:59 07:59 WBC 3.1 L (4.5-11.0) K/mm3 MCH 27 L (28-32) pg RDW 20.4 H (13.2-15.2) % Carbon Dioxide 20 L (22-30) mmol/L BUN 53 H (7-17) mg/dL Creatinine 4.2 H (0.6-1.2) mg/dL Troponin T 0.035 H (0.00-0.029) ng/mL Cholesterol 210 H (50-199) mg/dL LDL Cholesterol Direct 161 H (50-130) mg/dL Assessment and Plan 65-year-old female who presents with multiple medical issues including chronic kidney disease previously on dialysis, congestive heart failure, and abdominal aortic aneurysm. Her abdominal aortic aneurysm is saccular in nature and has increased in size and is now 5.4 cm in size. Given her gender and the increase in size, this is appropriate for treatment. Treatment does not need to be done emergently. Patient has no abdominal pain. Her back pain is not related to the aneurysm and appears to be related to her hips. Discussed with patient that the complicated part of her care plan other than treating her, will be imaging her. Options include MR angiogram of the abdomen pelvis with contrast (usually requires GFR greater than 30), or CT angiogram of the abdomen and pelvis with contrast. Could perform radial approach angiogram with 50 mL of nonionic contrast instead of the typical 70-100, but patient's creatinine is quite elevated and this would place her at risk for end-stage renal disease with dialysis dependence. Recommend optimizing patient medically, and then reevaluating creatinine and r enal function to determine how best to image the patient.
[2021-07-20] MEDS: hydrALAZINE 25 MG TAB PO SCH ×3 (14:06→22:09)
[2021-07-20 14:08] LABS: Creatinine,Urine 174.9 mg/dL (0.1-20.0); Protein/Creatinine Ratio,Urine 0.39
[2021-07-20] MEDS: ONDANSETRON 4 MG/2 ML INJ IV PRN ×2 (14:14→18:17)
[2021-07-20] MEDS: NYSTATIN CREAM 15 GM TUBE TP SCH ×2 (15:21→22:07)
--- NOTE | 2021-07-20 16:11 | Ultrasound Report ---
ULTRASOUND RENAL INDICATION / CLINICAL INFORMATION: renal failure. COMPARISON: CT abdomen/pelvis without contrast 07/20/2021. FINDINGS: RIGHT KIDNEY: Length = 5.3 cm. - Echogenicity: Increased. - Cortical Thickness: Thinned. - Hydronephrosis: None. - Cyst / Mass: None. - Stones: None seen. LEFT KIDNEY: Length = 7.0 cm. - Echogenicity: Increased. - Cortical Thickness: Thinned. - Hydronephrosis: None. - Cyst / Mass: None. - Stones: None seen. URINARY BLADDER: No significant abnormality. FREE FLUID: None. ADDITIONAL FINDINGS: Incidental finding of left pleural effusion. IMPRESSION: 1. Bilateral atrophic kidneys characteristic of medical renal disease. 2. Incidental finding of left pleural effusion. Scribed by: Kandy Ulloa RDMS, RVT Scribed: 07/20/2021 1:30 PM I have reviewed the images, agree with this report, and edited this report as needed. Signer Name: Eliseo Delgado DO Signed: 07/20/2021 4:07 PM Workstation Name: [id number]
[2021-07-20 16:21] LABS: Anisocytosis 1+; Total Cells Counted 100
[2021-07-20 16:22] LABS: Large Platelets Rare; Macrocytosis Few; Platelet Estimate Consistent w Auto
[2021-07-20] MEDS: FUROSEMIDE 40 MG/4 ML INJ IV SCH (18:18)
[2021-07-20 19:14] LABS: Free T4 (Free Thyroxine) 1.59 ng/dL (0.76-1.46)
[2021-07-20] MEDS: DOCUSATE SODIUM 100 MG CAP PO SCH (22:09)
[2021-07-20] MEDS: SODIUM BICARBONATE 650 MG TAB PO SCH (22:14)
[2021-07-21] MEDS: hydrALAZINE 25 MG TAB PO SCH ×2 (05:47→16:36)
[2021-07-21] MEDS: FUROSEMIDE 40 MG/4 ML INJ IV SCH (06:18)
[2021-07-21] MEDS ORDERED: METOPROLOL TARTRATE 25 MG TAB PO SCH (10:00)
--- NOTE | 2021-07-21 11:11 | Electrocardiograph Report ---
[facility] Test Date: 2021-07-20 Test Time: 07:25:02 Pat Name: MARY LOU JAMES Department: Room: [place] [address] Gender: F Bottom Stainer: : 1955 Requested By: PA DAWKINS Order Number: [id number] Reading MD: Jerald Gomez Measurements Intervals [place] Rate: 55 P: 0 MN: 321 QRS: -10 QRSD: 96 T: 26 QT: 636 QTc: 644 Interpretive Statements Sinus rhythm Sinus pause Prolonged MN interval Probable left ventricular hypertrophy Prolonged QT interval No previous ECG available for comparison Electronically Signed On 07-21-2021 11:11:30 EDT by Jerald Gomez
--- NOTE | 2021-07-21 11:13 | Progress Note ---
Assessment and Plan Assessment: Chest Pain Nausea/Vomiting Advanced Chronic Kidney Disease, stage 4-5 Hypertension CHF AAA Plan: -Renal labs reviewed. Serum creatinine 4.3 today, yesterday's was 4.2 -Serum creatinine in May 2018 was 3.8 and 3.9, has advanced renal disease, she is really end stage -Outpatient green inspector is Dr. Colbert. She states she was on dialysis temporarily 4 years ago and after her outpatient green inspector perfomed a 24 hour urine collection for creatinine clearance they both decided that dialysis should be terminated. Patient states that her GFR has remained at 13-14 ml/min for 4 years now and states that she is against dialysis and would only do it temporarily for no more than 4 months but overall is against dialysis -Discussed with patient that if she should receive any contrast or dye that is required for any vascular procedure, there is a strong chance that her renal function would get worse requiring hemodialysis initiation. Also explained to patient that IV fluids could not be given to prepare for such procedure in advance as she is volume overloaded and instead needs diuretic. Patient voiced understanding. States was on Lasix at home and states she skipped it some days. -CXR showed- Bilateral Pleural Effusions, mild volume overload or CHF -On Lasix 40 mg IV daily- will switch to Lasix 20 mg IV BID -Renal ultrasound- No hydronephrosis. Medical renal disease. -Obtain daily weights -Urine lytes reviewed. No urine eosinophils. -Avoid nephrotoxic agents -Renally dose medications -Monitor I/O's daily-asked nurse to measure UOP -Will need HD in very near future as she really has end stage renal disease, but she does not want to commit to dialysis, can be discharged possibly tomorrow from nephrology standpoint to f/u with her outpatient green inspector within 5-7 days of discharge -Plan of care reviewed by Dr. Downey Subjective Date of service: 07/21/21 Principal diagnosis: CKD stage 5 Interval history: Patient seen lying in bed. Reviewed her renal labs. Patient requested for Lasix to be in twice daily doses after discussing with her that her renal function was now 12%. Patient is very opinionated about her renal care and states she does not need dialysis at this time. Objective - Vital Signs Vital signs: Vital Signs - 12hr 07/20/21 07/20/21 07/20/21 23:15 23:31 23:45 Pulse Rate 64 62 63 Respiratory 14 12 13 Rate Blood Pressure 138/67 140/68 140/68 Blood Pressure [Left] O2 Sat by Pulse 92 92 95 Oximetry 07/21/21 07/21/21 07/21/21 00:01 00:15 00:31 Pulse Rate 61 62 62 Respiratory 14 15 13 Rate Blood Pressure 150/75 150/75 135/64 Blood Pressure [Left] O2 Sat by Pulse 94 94 94 Oximetry 07/21/21 07/21/21 07/21/21 00:45 01:01 01:15 Pulse Rate 61 65 62 Respiratory 12 15 13 Rate Blood Pressure 135/64 143/70 143/70 Blood Pressure [Left] O2 Sat by Pulse 94 93 93 Oximetry 07/21/21 07/21/21 07/21/21 01:31 01:45 02:01 Pulse Rate 63 64 66 Respiratory 15 14 17 Rate Blood Pressure 134/75 134/75 151/71 Blood Pressure [Left] O2 Sat by Pulse 93 93 93 Oximetry 07/21/21 07/21/21 07/21/21 02:15 02:31 02:45 Pulse Rate 66 65 65 Respiratory 16 15 14 Rate Blood Pressure 151/71 159/78 159/78 Blood Pressure [Left] O2 Sat by Pulse 95 94 92 Oximetry 07/21/21 07/21/21 07/21/21 03:01 03:15 03:31 Pulse Rate 67 71 71 Respiratory 20 21 18 Rate Blood Pressure 146/118 146/118 144/71 Blood Pressure [Left] O2 Sat by Pulse 99 98 92 Oximetry 07/21/21 07/21/21 07/21/21 03:45 04:01 04:15 Pulse Rate 70 68 74 Respiratory 18 17 18 Rate Blood Pressure 144/71 147/66 147/66 Blood Pressure [Left] O2 Sat by Pulse 90 92 90 Oximetry 07/21/21 07/21/21 07/21/21 04:31 04:45 05:01 Pulse Rate 64 67 66 Respiratory 15 16 32 H Rate Blood Pressure 147/66 147/66 126/52 Blood Pressure [Left] O2 Sat by Pulse 90 86 88 Oximetry 07/21/21 07/21/21 07/21/21 05:15 05:31 05:45 Pulse Rate 66 67 69 Respiratory 15 15 14 Rate Blood Pressure 126/52 119/62 119/62 Blood Pressure [Left] O2 Sat by Pulse 88 87 88 Oximetry 07/21/21 07/21/21 07/21/21 05:47 06:01 06:15 Pulse Rate 66 71 69 Respiratory 14 14 Rate Blood Pressure 126/52 139/68 139/68 Blood Pressure [Left] O2 Sat by Pulse 90 89 Oximetry 07/21/21 07/21/21 07/21/21 06:31 06:45 07:01 Pulse Rate 68 66 66 Respiratory 17 16 17 Rate Blood Pressure 118/45 118/45 115/56 Blood Pressure [Left] O2 Sat by Pulse 91 94 90 Oximetry 07/21/21 07/21/21 09:09 09:11 Pulse Rate 80 Respiratory 16 Rate Blood Pressure Blood Pressure 134/60 [Left] O2 Sat by Pulse 100 100 Oximetry - General Appearance General appearance: well-developed, appears stated age EENT: ATNC, PERRL, hearing intact, vision intact Respiratory: Present: Decreased Breath Sounds Cardiology: S1S2 Gastrointestinal: normoactive bowel sounds Integumentary: warm and dry Neurologic: alert and oriented x3 Musculoskeletal: joint swelling - Lab 07/20/21 07:59 07/21/21 04:56 Most recent lab results Calcium 9.0 mg/dL (8.4-10.2) 07/21/21 04:56 Phosphorus 5.30 mg/dL (2.5-4.5) H 07/21/21 04:56 Magnesium 2.40 mg/dL (1.7-2.3) H 07/20/21 14:48 Urine Creatinine 174.9 mg/dL (0.1-20.0) H 07/20/21 13:15 Urine Sodium 47 mmol/L 07/20/21 13:15 Urine Total Protein 68 mg/dL (5-11.8) H 07/20/21 13:15 Medications & Allergies - Medications Allergies/Adverse Reactions: Allergies morphine Allergy (Verified 07/20/21 07:16) Unknown Penicillins Allergy (Verified 07/20/21 07:16) Itching Home Medications: Home Medications Medication Instructions Recorded Confirmed Last Taken Type AtorvaSTATin [Lipitor] 40 mg PO QHS 05/31/18 05/31/18 05/30/18 History Docusate Sodium [Colace CAP] 100 mg PO BID 05/31/18 05/31/18 05/30/18 History Metoprolol [Lopressor TAB] 25 mg PO DAILY 05/31/18 05/31/18 05/30/18 History Sodium Bicarbonate 650 mg PO BID 05/31/18 05/31/18 05/30/18 History calcitrioL [Rocaltrol] 0.5 mcg PO QDAY 05/31/18 05/31/18 05/30/18 History hydrALAZINE [Apresoline TAB] 25 mg PO Q8HR 05/31/18 05/31/18 05/30/18 History Albuterol Sulfate [Ventolin HFA] 2 puff IH Q4H PRN #1 pump 06/04/18 Unknown Rx Nicotine [Habitrol] 21 mg TD QDAY@0600 30 Days patch 06/04/18 Unknown Rx Nystatin Cream [Mycostatin Cream] 1 applic TP TID 7 Days tube 06/04/18 Unknown Rx traMADoL [Ultram 50 MG tab] 50 mg PO Q12H PRN #10 tablet 06/04/18 Unknown Rx Active Medications: Generic Name Dose Route Start Last Admin Trade Name Freq PRN Reason Stop Dose Admin Acetaminophen 650 mg 07/20/21 12:30 Acetaminophen 325 Mg Tab PO Q4H PRN Pain MILD(1-3)/Fever >100.5/VERA Albuterol 2.5 mg 07/20/21 12:30 Albuterol 2.5 Mg/3 Ml Nebu IH Q4HRT PRN Shortness Of Breath Atorvastatin Calcium 40 mg 07/20/21 22:00 07/20/21 22:09 Atorvastatin 40 Mg Tab PO 40 mg QHS ZOLTAN Administration Calcitriol 0.5 mcg 07/21/21 10:00 Calcitriol 0.5 Mcg Cap PO QDAY ZOLTAN Docusate Sodium 100 mg 07/20/21 22:00 07/20/21 22:09 Docusate Sodium 100 Mg Cap PO 100 mg BID ZOLTAN Administration Furosemide 40 mg 07/20/21 18:00 07/21/21 06:18 Furosemide 40 Mg/4 Ml Inj IV 40 mg DAILY@0600 ZOLTAN Administration Hydralazine HCl 25 mg 07/20/21 14:00 07/21/21 05:47 Hydralazine 25 Mg Tab PO Not Given Q8HR ZOLTAN Hydromorphone HCl 0.5 mg 07/20/21 12:30 07/20/21 14:34 Hydromorphone 1 Mg/1 Ml Inj IV 0.5 mg Q24H PRN Administration Pain , Severe (7-10) Metoprolol Tartrate 25 mg 07/21/21 10:00 Metoprolol Tartrate 25 Mg Tab PO DAILY ZOLTAN Nicotine 21 mg 07/21/21 06:00 Nicotine 21 Mg/24 Hr Patch TD QDAY@0600 ZOLTAN Nystatin 1 applic 07/20/21 14:00 07/20/21 22:07 Nystatin Cream 15 Gm Tube TP Not Given TID [facility] Ondansetron HCl 4 mg 07/20/21 12:30 07/20/21 18:17 Ondansetron 4 Mg/2 Ml Inj IV 4 mg Q8H PRN Administration Nausea And Vomiting Oxycodone/Acetaminophen 1 tab 07/20/21 12:30 Oxycodone /Acetaminophen 5-325mg Tab PO Q12H PRN Pain, Moderate (4-6) Sodium Bicarbonate 650 mg 07/20/21 22:00 07/20/21 22:14 Sodium Bicarbonate 650 Mg Tab PO 650 mg BID ZOLTAN Administration Sodium Chloride 10 ml 07/20/21 22:00 07/20/21 22:09 Sodium Chloride 0.9% 10 Ml Flush Syringe IV 10 ml BID ZOLTAN Administration Sodium Chloride 10 ml 07/20/21 12:30 Sodium Chloride 0.9% 10 Ml Flush Syringe IV PRN PRN LINE FLUSH
[2021-07-21] MEDS: DOCUSATE SODIUM 100 MG CAP PO SCH (11:29)
--- NOTE | 2021-07-21 14:09 | Progress Note ---
Assessment and Plan Assessment and plan: History of present illness: 65 YO Female with HTN, HLD, CKD, Nicotine Dependence, [place], CAD S/P Stent Placement presents to ED for evaluation. Patient is reports "I am not feeling good this morning". Patient states that she has experienced generalized weakness, nausea, chest discomfort, body aches. Patient knowledges decreased exercise tolerance, dyspnea on exertion. Patient transported to [facility] via private vehicle for further care and evaluation of the aforementioned symptoms. The patient was seen and evaluated in the emergency department. All lab and imaging studies reviewed. Patient found to have MEÑO with ATN with possible development of end-stage renal disease, metabolic acidosis, as well as clinical symptoms consistent with CHF decompensation. Patient admitted to telemetry and initiated on CHF protocol. Nephrology team consulted in ED. Cardiology team consulted in ED. vascular surgery consulted in the ED for possible dialysis catheter placement. Patient denies fever, chills, chest pain, palpitation, productive cough, skin rash, recent ill contacts, or known exposure to COVID-19. Patient has not been vaccinated against coronavirus. Past admission on 05/21/2018 reviewed. All medication listed at time of admission has been reconciled. Advanced care planning conducted in ED. Assessement and Plan: (1) Acute decompensated Heart Failure with Reduced Ejection Fraction. Plan to address problem: CHF protocol: Chest x-ray, BNP, thyroid panel, magnesium level, blood pressure control, diuresis with Lasix, strict I's/O, monitor urine output every shift, daily weight, afterload reduction 07/20 ECHO: LVEF 30-35%. global LV hypokinesis. Please refer to official report. Patient has a history of noncompliance and admits this. Likely why she has decompensated. Needs optimization of GDMT: continue Lasix IV, home metoprolol resumed, Add aldactone 25 mg po daily Might benefit from BiDil? Will defer to cardiology. Cardiology consulted on admission. will follow for recommendations (3) Abdominal Aortic Aneurysm Plan to address problem: Infrarenal saccular aneurysm on CTAP appreciated. Inc in size from 2.5 cm in 2018 to 3.5 cm on study from this admission. Vascular surgery consulted, not urgent plan to intervene. Would benefit from additional imaging however patient has CKD and cannot receive contrast. Recommend optimizing from medical standpoint. 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 Was on HD for 8 months total. follows with Dr. Colbert as an outpatient Baseline Cr 3.8, patient produces urine. Cr this admission 4.3. States she is still producing urine. She is overall against dialysis per nephrology note strict I's/O, monitor urine output every shift, avoid nephrotoxic agents. Nephrology following (3) Acidosis (resolving) Plan to address problem: Nephrology following (4) Nicotine dependence Plan to address problem: Smoking cessation counseling, nicotine patch, behavior change counseling, +15 minutes. (5) Nausea and vomiting (resolved) Plan to address problem: Supportive care, dialysis as per renal team, antiemetic therapy as needed. (6) DVT prophylaxis Current Visit: Yes Status: Acute Plan to address problem: SCD to bilateral lower extremities while in bed, patient is ambulatory (7) Advance care planning Current Visit: Yes Status: Acute Plan to address problem: Disease education conducted, care plan discussed, diagnosis discussed, prognosis discussed, patient is full code, patient knowledges understanding agreement with care plan, +30 minutes. Hospital Course to date: 07/21: Resting comfortably. Satting in low 90's on room air. Exam demonstrates continue bibasilar crackles. Added aldactone to regimen. Might be a good candidate for Bidil but will defer to cardiology. No current plans by vascular to address AAA given decompensated HF and advanced CKD. History Interval history: Patient only complaint is she is hungry. Hospitalist Physical - Physical exam Narrative exam: General appearance: Present: mild distress - EENT Eyes: Present: PERRL ENT: hearing intact, clear oral mucosa - Neck Neck: Present: supple, normal ROM - Respiratory Respiratory effort: normal Respiratory: bilateral: diminished, rales - Cardiovascular Heart Sounds: Present: S1 & S2. Absent: rub, click - Extremities Extremities: pulses symmetrical, No edema Peripheral Pulses: within normal limits - Abdominal General gastrointestinal: Present: soft, non-tender, non-distended, normal bowel sounds Female genitourinary: Present: normal - Integumentary Integumentary: Present: clear, warm, dry - Musculoskeletal Musculoskeletal: gait normal, strength equal bilaterally - Psychiatric Psychiatric: appropriate mood/affect, intact judgment & insight - Neurologic Neurologic: CNII-XII intact, moves all extremities - Constitutional Vitals: Temp Pulse Resp BP Pulse Ox 97.6 F 71 16 159/78 100 09/07/21 09:25 07/21/21 11:30 07/21/21 09:11 07/21/21 11:30 07/21/21 09:11 General appearance: Present: mild distress HEART Score - HEART Score EKG: Non-specific Age: 45-65 Risk factors: 1-2 risk factors Troponin: Troponin T 0.027 ng/mL (0.00-0.029) 07/20/21 14:48 Troponin: 1-3x normal limit - Critical Actions Critical Actions: 4-6 pts:12-16.6% risk of adverse cardiac event. Should be admitted Results - Labs CBC & Chem 7: 07/20/21 07:59 07/21/21 04:56 Labs: Laboratory Last Values WBC 3.1 K/mm3 (4.5-11.0) L 07/20/21 07:59 RBC 4.65 M/mm3 (3.65-5.03) 07/20/21 07:59 Hgb 12.5 gm/dl (10.1-14.3) 07/20/21 07:59 Hct 37.6 % (30.3-42.9) 07/20/21 07:59 MCV 81 fl (79-97) 07/20/21 07:59 MCH 27 pg (28-32) L 07/20/21 07:59 MCHC 33 % (30-34) 07/20/21 07:59 RDW 20.4 % (13.2-15.2) H 07/20/21 07:59 Plt Count 190 K/mm3 (140-440) 07/20/21 07:59 Add Manual Diff Complete 07/20/21 07:59 Total Counted 100 07/20/21 07:59 Seg Neuts % (Manual) 70.0 % (40.0-70.0) 07/20/21 07:59 Lymphocytes % (Manual) 19.0 % (13.4-35.0) 07/20/21 07:59 Monocytes % (Manual) 4.0 % (0.0-7.3) 07/20/21 07:59 Eosinophils % (Manual) 7.0 % (0.0-4.3) H 07/20/21 07:59 Nucleated RBC % Not Reportable 07/20/21 07:59 Seg Neutrophils # Man 2.2 K/mm3 (1.8-7.7) 07/20/21 07:59 Band Neutrophils # 0.0 K/mm3 07/20/21 07:59 Lymphocytes # (Manual) 0.6 K/mm3 (1.2-5.4) L 07/20/21 07:59 Abs React Lymphs (Man) 0.0 K/mm3 07/20/21 07:59 Monocytes # (Manual) 0.1 K/mm3 (0.0-0.8) 07/20/21 07:59 Eosinophils # (Manual) 0.2 K/mm3 (0.0-0.4) 07/20/21 07:59 Basophils # (Manual) 0.0 K/mm3 (0.0-0.1) 07/20/21 07:59 Metamyelocytes # 0.0 K/mm3 07/20/21 07:59 Myelocytes # 0.0 K/mm3 07/20/21 07:59 Promyelocytes # 0.0 K/mm3 07/20/21 07:59 Blast Cells # 0.0 K/mm3 07/20/21 07:59 WBC Morphology Not Reportable 07/20/21 07:59 Hypersegmented Neuts Not Reportable 07/20/21 07:59 Hyposegmented Neuts Not Reportable 07/20/21 07:59 Hypogranular Neuts Not Reportable 07/20/21 07:59 Smudge Cells Not Reportable 07/20/21 07:59 Toxic Granulation Not Reportable 07/20/21 07:59 Toxic Vacuolation Not Reportable 07/20/21 07:59 Dohle Bodies Not Reportable 07/20/21 07:59 Pelger-Huet Anomaly Not Reportable 07/20/21 07:59 Denisse Rods Not Reportable 07/20/21 07:59 Platelet Estimate Consistent w auto 07/20/21 07:59 Clumped Platelets Not Reportable 07/20/21 07:59 Plt Clumps, EDTA Not Reportable 07/20/21 07:59 Large Platelets Rare 07/20/21 07:59 Giant Platelets Not Reportable 07/20/21 07:59 Platelet Satelliting Not Reportable 07/20/21 07:59 Plt Morphology Comment Not Reportable 07/20/21 07:59 RBC Morphology Not Reportable 07/20/21 07:59 Dimorphic RBCs Not Reportable 07/20/21 07:59 Polychromasia Not Reportable 07/20/21 07:59 Hypochromasia Not Reportable 07/20/21 07:59 Poikilocytosis Not Reportable 07/20/21 07:59 Anisocytosis 1+ 07/20/21 07:59 Microcytosis Not Reportable 07/20/21 07:59 Macrocytosis Few 07/20/21 07:59 Spherocytes Not Reportable 07/20/21 07:59 Pappenheimer Bodies Not Reportable 07/20/21 07:59 Sickle Cells Not Reportable 07/20/21 07:59 Target Cells Not Reportable 07/20/21 07:59 Tear Drop Cells Not Reportable 07/20/21 07:59 Ovalocytes Not Reportable 07/20/21 07:59 Helmet Cells Not Reportable 07/20/21 07:59 [place] Bodies Not Reportable 07/20/21 07:59 Helm Rings Not Reportable 07/20/21 07:59 [place] Cells Not Reportable 07/20/21 07:59 Bite Cells Not Reportable 07/20/21 07:59 Crenated Cell Not Reportable 07/20/21 07:59 Elliptocytes Not Reportable 07/20/21 07:59 Acanthocytes (Spur) Not Reportable 07/20/21 07:59 Rouleaux Not Reportable 07/20/21 07:59 Hemoglobin C Crystals Not Reportable 07/20/21 07:59 Schistocytes Not Reportable 07/20/21 07:59 Malaria parasites Not Reportable 07/20/21 07:59 Luis Bodies Not Reportable 07/20/21 07:59 Hem Pathologist Commnt No 07/20/21 07:59 PT 14.8 Sec. (12.2-14.9) 07/20/21 07:59 INR 1.11 (0.87-1.13) 07/20/21 07:59 Sodium 140 mmol/L (137-145) 07/21/21 04:56 Potassium 4.7 mmol/L (3.6-5.0) 07/21/21 04:56 Chloride 107.8 mmol/L (98-107) H 07/21/21 04:56 Carbon Dioxide 19 mmol/L (22-30) L 07/21/21 04:56 Anion Gap 18 mmol/L 07/21/21 04:56 BUN 58 mg/dL (7-17) H 07/21/21 04:56 Creatinine 4.4 mg/dL (0.6-1.2) H 07/21/21 04:56 Estimated GFR 12 ml/min 07/21/21 04:56 BUN/Creatinine Ratio 13 % 07/21/21 04:56 Glucose 151 mg/dL (65-100) H 07/21/21 04:56 Lactic Acid 0.70 mmol/L (0.7-2.0) 07/20/21 10:22 Calcium 9.0 mg/dL (8.4-10.2) 07/21/21 04:56 Phosphorus 5.30 mg/dL (2.5-4.5) H 07/21/21 04:56 Magnesium 2.40 mg/dL (1.7-2.3) H 07/20/21 14:48 Total Bilirubin 0.50 mg/dL (0.1-1.2) 07/20/21 07:59 AST 14 units/L (5-40) 07/20/21 07:59 ALT 10 units/L (7-56) 07/20/21 07:59 Alkaline Phosphatase 81 units/L (35-129) 07/20/21 07:59 Troponin T 0.027 ng/mL (0.00-0.029) 07/20/21 14:48 NT-Pro-B Natriuret Pep 88025 pg/mL (0-900) H 07/20/21 14:48 Total Protein 6.7 g/dL (6.3-8.2) 07/20/21 07:59 Albumin 4.1 g/dL (3.9-5) 07/20/21 07:59 Albumin/Globulin Ratio 1.6 % 07/20/21 07:59 Triglycerides 66 mg/dL (2-149) 07/20/21 07:59 Cholesterol 210 mg/dL (50-199) H 07/20/21 07:59 LDL Cholesterol Direct 161 mg/dL (50-130) H 07/20/21 07:59 HDL Cholesterol 49 mg/dL (40-59) 07/20/21 07:59 Cholesterol/HDL Ratio 4.28 % 07/20/21 07:59 TSH 8.620 mlU/mL (0.270-4.200) H 07/20/21 18:08 Free T4 1.59 ng/dL (0.76-1.46) H 07/20/21 18:08 Urine Eosinophils None seen (None Seen) 07/20/21 13:15 Urine Creatinine 174.9 mg/dL (0.1-20.0) H 07/20/21 13:15 Protein/Creatinin Ratio 0.39 07/20/21 13:15 Urine Sodium 47 mmol/L 07/20/21 13:15 Urine Total Protein 68 mg/dL (5-11.8) H 07/20/21 13:15 Microbiology: Microbiology 07/20/21 10:22 Peripheral/Venous Blood Culture - Preliminary NO GROWTH AFTER 24 HOURS 07/20/21 10:22 Peripheral/Venous Blood Culture - Preliminary NO GROWTH AFTER 24 HOURS Active Medications - Current Medications Current Medications: Generic Name Dose Route Start Last Admin Trade Name Freq PRN Reason Stop Dose Admin Acetaminophen 650 mg 07/20/21 12:30 Acetaminophen 325 Mg Tab PO Q4H PRN Pain MILD(1-3)/Fever >100.5/VERA Albuterol 2.5 mg 07/20/21 12:30 Albuterol 2.5 Mg/3 Ml Nebu IH Q4HRT PRN Shortness Of Breath Atorvastatin Calcium 40 mg 07/20/21 22:00 07/20/21 22:09 Atorvastatin 40 Mg Tab PO 40 mg QHS ZOLTAN Administration Calcitriol 0.5 mcg 07/21/21 10:00 Calcitriol 0.5 Mcg Cap PO QDAY ZOLTAN Docusate Sodium 100 mg 07/20/21 22:00 07/21/21 11:29 Docusate Sodium 100 Mg Cap PO 100 mg BID ZOLTAN Administration Furosemide 40 mg 07/20/21 18:00 07/21/21 06:18 Furosemide 40 Mg/4 Ml Inj IV 40 mg DAILY@0600 ZOLTAN Administration Hydralazine HCl 25 mg 07/20/21 14:00 07/21/21 05:47 Hydralazine 25 Mg Tab PO Not Given Q8HR ZOLTAN Hydromorphone HCl 0.5 mg 07/20/21 12:30 07/20/21 14:34 Hydromorphone 1 Mg/1 Ml Inj IV 0.5 mg Q24H PRN Administration Pain , Severe (7-10) Metoprolol Tartrate 25 mg 07/21/21 10:00 07/21/21 11:30 Metoprolol Tartrate 25 Mg Tab PO 25 mg DAILY ZOLTAN Administration Nicotine 21 mg 07/21/21 06:00 Nicotine 21 Mg/24 Hr Patch TD QDAY@0600 ZOLTAN Ondansetron HCl 4 mg 07/20/21 12:30 07/20/21 18:17 Ondansetron 4 Mg/2 Ml Inj IV 4 mg Q8H PRN Administration Nausea And Vomiting Oxycodone/Acetaminophen 1 tab 07/20/21 12:30 Oxycodone /Acetaminophen 5-325mg Tab PO Q12H PRN Pain, Moderate (4-6) Sodium Bicarbonate 650 mg 07/20/21 22:00 07/20/21 22:14 Sodium Bicarbonate 650 Mg Tab PO 650 mg BID ZOLTAN Administration Sodium Chloride 10 ml 07/20/21 22:00 07/20/21 22:09 Sodium Chloride 0.9% 10 Ml Flush Syringe IV 10 ml BID ZOLTAN Administration Sodium Chloride 10 ml 07/20/21 12:30 Sodium Chloride 0.9% 10 Ml Flush Syringe IV PRN PRN LINE FLUSH
--- NOTE | 2021-07-21 15:25 | Consultation ---
History of Present Illness Consult date: 07/21/21 Requesting physician: SHABNAM ANGEL Consult reason: congestive heart failure History of present illness: Patient is a 65 y/o female previously unknown to our practice with pmhx of CAD s/p PCI 2013, HTN, CKD, HLD and tobacco use. The patient presented to the ED via EMS for complaint of chest pain. The patient reports that she yesterday morning she was woken up from her sleep due to her chest pain. She sasy the pain was located on her the left side of her chest and described the pain as tightness and tender. She rated the pain as 10/10 and says it was worse with movement and radiated to her left arm. She called for EMS and was unable to open the door because her pain was so bad. She reports SOB, nausea, vomiting, and diaphoresis. She denies palpitations or dizziness. Cardiology is consulted for CHF. Past History Past Medical History: heart failure, hypertension, hyperlipidemia, renal failure, other (hypertension, hyperlipidemia, renal failure (CKD; hx of MEÑO requiring HD (appx 4 years ago))) Past Surgical History: cholecystectomy, Other (Cardiac stent placement) Social history: , smoking. denies: alcohol abuse, prescription drug abuse Family history: hypertension Medications and Allergies Allergies Allergy/AdvReac Type Severity Reaction Status Date / Time morphine Allergy Unknown Verified 07/20/21 07:16 Penicillins Allergy Itching Verified 07/20/21 07:16 Home Medications Medication Instructions Recorded Confirmed Last Taken Type AtorvaSTATin [Lipitor] 40 mg PO QHS 05/31/18 05/31/18 05/30/18 History Docusate Sodium [Colace CAP] 100 mg PO BID 05/31/18 05/31/18 05/30/18 History Metoprolol [Lopressor TAB] 25 mg PO DAILY 05/31/18 05/31/18 05/30/18 History Sodium Bicarbonate 650 mg PO BID 05/31/18 05/31/18 05/30/18 History calcitrioL [Rocaltrol] 0.5 mcg PO QDAY 05/31/18 05/31/18 05/30/18 History hydrALAZINE [Apresoline TAB] 25 mg PO Q8HR 05/31/18 05/31/18 05/30/18 History Albuterol Sulfate [Ventolin HFA] 2 puff IH Q4H PRN #1 pump 06/04/18 Unknown Rx Nicotine [Habitrol] 21 mg TD QDAY@0600 30 Days patch 06/04/18 Unknown Rx Nystatin Cream [Mycostatin Cream] 1 applic TP TID 7 Days tube 06/04/18 Unknown Rx traMADoL [Ultram 50 MG tab] 50 mg PO Q12H PRN #10 tablet 06/04/18 Unknown Rx Active Meds: Active Medications Acetaminophen (Acetaminophen 325 Mg Tab) 650 mg PO Q4H PRN PRN Reason: Pain MILD(1-3)/Fever >100.5/VERA Albuterol (Albuterol 2.5 Mg/3 Ml Nebu) 2.5 mg IH Q4HRT PRN PRN Reason: Shortness Of Breath Atorvastatin Calcium (Atorvastatin 40 Mg Tab) 40 mg PO QHS [facility] Last Admin: 07/20/21 22:09 Dose: 40 mg Documented by: Calcitriol (Calcitriol 0.5 Mcg Cap) 0.5 mcg PO QDAY [facility] Docusate Sodium (Docusate Sodium 100 Mg Cap) 100 mg PO BID [facility] Last Admin: 07/21/21 11:29 Dose: 100 mg Documented by: Furosemide (Furosemide 40 Mg/4 Ml Inj) 20 mg IV 0600,1800 [facility] Hydralazine HCl (Hydralazine 25 Mg Tab) 25 mg PO Q8HR [facility] Last Admin: 07/21/21 05:47 Dose: Not Given Documented by: Hydromorphone HCl (Hydromorphone 1 Mg/1 Ml Inj) 0.5 mg IV Q24H PRN PRN Reason: Pain , Severe (7-10) Last Admin: 07/20/21 14:34 Dose: 0.5 mg Documented by: Isosorbide Mononitrate (Isosorbide Mononitrate Er 30 Mg Tab) 30 mg PO QDAY [facility] Metoprolol Tartrate (Metoprolol Tartrate 25 Mg Tab) 25 mg PO DAILY [facility] Last Admin: 07/21/21 11:30 Dose: 25 mg Documented by: Nicotine (Nicotine 21 Mg/24 Hr Patch) 21 mg TD QDAY@0600 [facility] Ondansetron HCl (Ondansetron 4 Mg/2 Ml Inj) 4 mg IV Q8H PRN PRN Reason: Nausea And Vomiting Last Admin: 07/20/21 18:17 Dose: 4 mg Documented by: Oxycodone/Acetaminophen (Oxycodone /Acetaminophen 5-325mg Tab) 1 tab PO Q12H PRN PRN Reason: Pain, Moderate (4-6) Sodium Bicarbonate (Sodium Bicarbonate 650 Mg Tab) 650 mg PO BID [facility] Last Admin: 07/20/21 22:14 Dose: 650 mg Documented by: Sodium Chloride (Sodium Chloride 0.9% 10 Ml Flush Syringe) 10 ml IV BID [facility] Last Admin: 07/20/21 22:09 Dose: 10 ml Documented by: Sodium Chloride (Sodium Chloride 0.9% 10 Ml Flush Syringe) 10 ml IV PRN PRN PRN Reason: LINE FLUSH Spironolactone (Spironolactone 25 Mg Tab) 25 mg PO QDAY [facility] Review of Systems All systems: negative Constitutional: sweats, weakness, no weight loss, no weight gain, no fever, no chills Ears, nose, mouth and throat: no nose pain, no nasal congestion, no nasal discharge, no sinus pressure Cardiovascular: chest pain, shortness of breath, no palpitations Respiratory: shortness of breath, no cough, no cough with sputum, no excessive sputum Gastrointestinal: nausea, vomiting, no abdominal pain, no diarrhea Musculoskeletal: shooting arm pain, no neck stiffness, no neck pain Integumentary: no rash, no pruritis, no redness Neurological: no head injury, no transient paralysis, no paralysis, no weakness Psychiatric: no anxiety, no memory loss Endocrine: no cold intolerance, no heat intolerance Hematologic/Lymphatic: no easy bruising, no easy bleeding Physical Examination Last Vital Signs Temp 97.6 F 07/20/21 09:25 Pulse 71 07/21/21 11:30 Resp 16 07/21/21 09:11 BP 159/78 07/21/21 11:30 Pulse Ox 100 07/21/21 09:11 General appearance: no acute distress HEENT: Positive: PERRL Neck: Positive: trachea midline Cardiac: Positive: Reg Rate and Rhythm Lungs: Positive: Decreased Breath Sounds Neuro: Positive: Grossly Intact Abdomen: Positive: Soft, Active Bowel Sounds Skin: Negative: Rash, Suspicious Lesions Extremities: Present: upper extr. pulses, +1 Edema Results 07/20/21 07:59 07/21/21 04:56 Comprehensive Metabolic Panel 07/21/21 Range/Units 04:56 Sodium 140 (137-145) mmol/L Potassium 4.7 (3.6-5.0) mmol/L Chloride 107.8 H (98-107) mmol/L Carbon Dioxide 19 L (22-30) mmol/L BUN 58 H (7-17) mg/dL Creatinine 4.4 H (0.6-1.2) mg/dL Glucose 151 H (65-100) mg/dL Calcium 9.0 (8.4-10.2) mg/dL EKG interpretations - Telemetry EKG Rhythm: Sinus Rhythm - EKG Sinus rhythms and dysrhythmias: sinus rhythm Chamber hypertrophy or enlargement: left ventricular hypertro Assessment and Plan HFrEF CAD Chest pain HTN Volume overload * EKG showed sinus lorraine 55 with LVH. No acute ischemic changes. Troponins were mildly elevated 0.03->0.02->0.02. Chest pain reproducible by movement and palpation. AMI ruled out * B[place] [id number]. CXR shows bilateral pleural effusions and mild volume overload. Per documentation patient skipped several days of her home Lasix * Agree with Lasix 20mg IV BID * Echo 07/20/2021- EF 30 to 35%, left ventricle is mildly dilated, moderate global hypokinesis of left ventricle, right ventricle is mildly dilated, right ventricle is hypokinetic, left atrium is mildly dilated, right atrium is normal size mild mitral regurgitation, moderate left pleural effusion, * Restart home imdur 30mg PO QD * Hold HOMAR/ARB in until ok per nephrology * Patient may benefit from ischemic evaluation when kidney status more stable CKD stage 4 * Nephrology is following * Per documentation patient does not want dialysis AAA * Vascular Consulted Restart patients home imdur. Recommend medical therapy. Agree with diuresis for volume overload. Patient seen in conjunction with Dr. Gomez who agrees with this plan - Patient Problems (1) CHF (congestive heart failure) Current Visit: Yes Status: Acute Qualifiers: Heart failure type: systolic Heart failure chronicity: acute Qualified Code(s): I50.21 - Acute systolic (congestive) heart failure (2) Nausea and vomiting Current Visit: Yes Status: Acute (3) Nicotine dependence Current Visit: Yes Status: Acute Qualifiers: Nicotine product type: cigarettes Substance use status: in withdrawal Qualified Code(s): F17.213 - Nicotine dependence, cigarettes, with withdrawal (4) Pleural effusion Current Visit: Yes Status: Acute (5) Acute renal failure superimposed on stage 4 chronic kidney disease Current Visit: No Status: Acute (6) CAD (coronary artery disease) Current Visit: No Status: Acute (7) GERD (gastroesophageal reflux disease) Current Visit: No Status: Acute (8) HTN (hypertension) Current Visit: No Status: Chronic (9) Hyperlipidemia Current Visit: No Status: Chronic
[2021-07-22] MEDS: ONDANSETRON 4 MG/2 ML INJ IV PRN (01:00)
[2021-07-22] MEDS: NICOTINE 21 MG/24 HR PATCH TD SCH ×2 (05:33→05:43)
[2021-07-22 05:38] LABS: Calcium 8.9 mg/dL (8.4-10.2)
[2021-07-22] MEDS: CALCITRIOL 0.5 MCG CAP PO SCH ×2 (05:43→10:32)
[2021-07-22] MEDS: SODIUM BICARBONATE 650 MG TAB PO SCH ×4 (05:43→22:26)
[2021-07-22] MEDS: SPIRONOLACTONE 25 MG TAB PO SCH ×2 (05:44→10:32)
[2021-07-22] MEDS: hydrALAZINE 25 MG TAB PO SCH ×4 (05:45→22:27)
[2021-07-22] MEDS: DOCUSATE SODIUM 100 MG CAP PO SCH ×3 (05:45→22:27)
[2021-07-22] MEDS: FUROSEMIDE 40 MG/4 ML INJ IV SCH ×2 (06:09→18:55)
--- NOTE | 2021-07-22 08:48 | Progress Note ---
Assessment and Plan Assessment and plan: History of present illness: 65 YO Female with HTN, HLD, CKD, Nicotine Dependence, [place], CAD S/P Stent Placement presents to ED for evaluation. Patient is reports "I am not feeling good this morning". Patient states that she has experienced generalized weakness, nausea, chest discomfort, body aches. Patient knowledges decreased exercise tolerance, dyspnea on exertion. Patient transported to [facility] via private vehicle for further care and evaluation of the aforementioned symptoms. The patient was seen and evaluated in the emergency department. All lab and imaging studies reviewed. Patient found to have MEÑO with ATN with possible development of end-stage renal disease, metabolic acidosis, as well as clinical symptoms consistent with CHF decompensation. Patient admitted to telemetry and initiated on CHF protocol. Nephrology team consulted in ED. Cardiology team consulted in ED. vascular surgery consulted in the ED for possible dialysis catheter placement. Patient denies fever, chills, chest pain, palpitation, productive cough, skin rash, recent ill contacts, or known exposure to COVID-19. Patient has not been vaccinated against coronavirus. Past admission on 05/21/2018 reviewed. All medication listed at time of admission has been reconciled. Advanced care planning conducted in ED. Assessement and Plan: (1) Acute decompensated Heart Failure with Reduced Ejection Fraction. Plan to address problem: CHF protocol: Chest x-ray, BNP, thyroid panel, magnesium level, blood pressure control, diuresis with Lasix, strict I's/O, monitor urine output every shift, daily weight, afterload reduction 07/20 ECHO: LVEF 30-35%. global LV hypokinesis. Please refer to official report. Patient has a history of noncompliance and admits this. Likely why she has decompensated. Needs optimization of GDMT: continue Lasix IV, home metoprolol resumed, Add aldactone 25 mg po daily Might benefit from BiDil? Will defer to cardiology. Cardiology consulted on admission. will follow for recommendations (3) Abdominal Aortic Aneurysm Plan to address problem: Infrarenal saccular aneurysm on CTAP appreciated. Inc in size from 2.5 cm in 2018 to 3.5 cm on study from this admission. Vascular surgery consulted, not urgent plan to intervene. Would benefit from additional imaging however patient has CKD and cannot receive contrast. Recommend optimizing from medical standpoint. 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 Was on HD for 8 months total. follows with Dr. Colbert as an outpatient Baseline Cr 3.8, patient produces urine. Cr this admission 4.3. States she is still producing urine. She is overall against dialysis per nephrology note strict I's/O, monitor urine output every shift, avoid nephrotoxic agents. Nephrology following (3) Acidosis (resolving) Plan to address problem: Nephrology following (4) Nicotine dependence Plan to address problem: Smoking cessation counseling, nicotine patch, behavior change counseling, +15 minutes. (5) Nausea and vomiting (resolved) Plan to address problem: Supportive care, dialysis as per renal team, antiemetic therapy as needed. (6) DVT prophylaxis Current Visit: Yes Status: Acute Plan to address problem: SCD to bilateral lower extremities while in bed, patient is ambulatory (7) Advance care planning Current Visit: Yes Status: Acute Plan to address problem: Disease education conducted, care plan discussed, diagnosis discussed, prognosis discussed, patient is full code, patient knowledges understanding agreement with care plan, +30 minutes. Hospital Course to date: 07/21: Resting comfortably. Satting in low 90's on room air. Exam demonstrates continue bibasilar crackles. Added aldactone to regimen. Might be a good candidate for Bidil but will defer to cardiology. No current plans by vascular to address AAA given decompensated HF and advanced CKD. 07/22: imdur started by cardiology team. chest pain worsed with palpation...likely msk in etiology. Cardiology does not plan for any further ischemic eval. plan for d/c tomorrow. History Interval history: Complains of sob but on room air sattingin upper 90's. Explained to patient that we have nearly optimized her from a cardiac standpoint. She states that she still has chest pain...however chest pain appears to be reproducible by palpation. Chest likley msk in etiology rather than cardiac. Hospitalist Physical - Physical exam Narrative exam: General appearance: Present: mild distress - EENT Eyes: Present: PERRL ENT: hearing intact, clear oral mucosa - Neck Neck: Present: supple, normal ROM - Respiratory Respiratory effort: normal Respiratory: bilateral: diminished, rales - Cardiovascular Heart Sounds: Present: S1 & S2. Absent: rub, click - Extremities Extremities: pulses symmetrical, No edema Peripheral Pulses: within normal limits - Abdominal General gastrointestinal: Present: soft, non-tender, non-distended, normal bowel sounds Female genitourinary: Present: normal - Integumentary Integumentary: Present: clear, warm, dry - Musculoskeletal Musculoskeletal: gait normal, strength equal bilaterally - Psychiatric Psychiatric: appropriate mood/affect, intact judgment & insight - Neurologic Neurologic: CNII-XII intact, moves all extremities - Constitutional Vitals: Temp Pulse Resp BP Pulse Ox 97.7 F 65 18 137/64 96 07/22/21 07:39 07/22/21 07:39 07/22/21 07:39 07/22/21 07:39 07/22/21 07:39 General appearance: Present: no acute distress HEART Score - HEART Score EKG: Non-specific Age: 45-65 Risk factors: 1-2 risk factors Troponin: Troponin T 0.027 ng/mL (0.00-0.029) 07/20/21 14:48 Troponin: 1-3x normal limit - Critical Actions Critical Actions: 4-6 pts:12-16.6% risk of adverse cardiac event. Should be admitted Results - Labs CBC & Chem 7: 07/20/21 07:59 07/22/21 04:57 Labs: Laboratory Last Values WBC 3.1 K/mm3 (4.5-11.0) L 07/20/21 07:59 RBC 4.65 M/mm3 (3.65-5.03) 07/20/21 07:59 Hgb 12.5 gm/dl (10.1-14.3) 07/20/21 07:59 Hct 37.6 % (30.3-42.9) 07/20/21 07:59 MCV 81 fl (79-97) 07/20/21 07:59 MCH 27 pg (28-32) L 07/20/21 07:59 MCHC 33 % (30-34) 07/20/21 07:59 RDW 20.4 % (13.2-15.2) H 07/20/21 07:59 Plt Count 190 K/mm3 (140-440) 07/20/21 07:59 Add Manual Diff Complete 07/20/21 07:59 Total Counted 100 07/20/21 07:59 Seg Neuts % (Manual) 70.0 % (40.0-70.0) 07/20/21 07:59 Lymphocytes % (Manual) 19.0 % (13.4-35.0) 07/20/21 07:59 Monocytes % (Manual) 4.0 % (0.0-7.3) 07/20/21 07:59 Eosinophils % (Manual) 7.0 % (0.0-4.3) H 07/20/21 07:59 Nucleated RBC % Not Reportable 07/20/21 07:59 Seg Neutrophils # Man 2.2 K/mm3 (1.8-7.7) 07/20/21 07:59 Band Neutrophils # 0.0 K/mm3 07/20/21 07:59 Lymphocytes # (Manual) 0.6 K/mm3 (1.2-5.4) L 07/20/21 07:59 Abs React Lymphs (Man) 0.0 K/mm3 07/20/21 07:59 Monocytes # (Manual) 0.1 K/mm3 (0.0-0.8) 07/20/21 07:59 Eosinophils # (Manual) 0.2 K/mm3 (0.0-0.4) 07/20/21 07:59 Basophils # (Manual) 0.0 K/mm3 (0.0-0.1) 07/20/21 07:59 Metamyelocytes # 0.0 K/mm3 07/20/21 07:59 Myelocytes # 0.0 K/mm3 07/20/21 07:59 Promyelocytes # 0.0 K/mm3 07/20/21 07:59 Blast Cells # 0.0 K/mm3 07/20/21 07:59 WBC Morphology Not Reportable 07/20/21 07:59 Hypersegmented Neuts Not Reportable 07/20/21 07:59 Hyposegmented Neuts Not Reportable 07/20/21 07:59 Hypogranular Neuts Not Reportable 07/20/21 07:59 Smudge Cells Not Reportable 07/20/21 07:59 Toxic Granulation Not Reportable 07/20/21 07:59 Toxic Vacuolation Not Reportable 07/20/21 07:59 Dohle Bodies Not Reportable 07/20/21 07:59 Pelger-Huet Anomaly Not Reportable 07/20/21 07:59 Denisse Rods Not Reportable 07/20/21 07:59 Platelet Estimate Consistent w auto 07/20/21 07:59 Clumped Platelets Not Reportable 07/20/21 07:59 Plt Clumps, EDTA Not Reportable 07/20/21 07:59 Large Platelets Rare 07/20/21 07:59 Giant Platelets Not Reportable 07/20/21 07:59 Platelet Satelliting Not Reportable 07/20/21 07:59 Plt Morphology Comment Not Reportable 07/20/21 07:59 RBC Morphology Not Reportable 07/20/21 07:59 Dimorphic RBCs Not Reportable 07/20/21 07:59 Polychromasia Not Reportable 07/20/21 07:59 Hypochromasia Not Reportable 07/20/21 07:59 Poikilocytosis Not Reportable 07/20/21 07:59 Anisocytosis 1+ 07/20/21 07:59 Microcytosis Not Reportable 07/20/21 07:59 Macrocytosis Few 07/20/21 07:59 Spherocytes Not Reportable 07/20/21 07:59 Pappenheimer Bodies Not Reportable 07/20/21 07:59 Sickle Cells Not Reportable 07/20/21 07:59 Target Cells Not Reportable 07/20/21 07:59 Tear Drop Cells Not Reportable 07/20/21 07:59 Ovalocytes Not Reportable 07/20/21 07:59 Helmet Cells Not Reportable 07/20/21 07:59 [place] Bodies Not Reportable 07/20/21 07:59 [place] Rings Not Reportable 07/20/21 07:59 [place] Cells Not Reportable 07/20/21 07:59 Bite Cells Not Reportable 07/20/21 07:59 Crenated Cell Not Reportable 07/20/21 07:59 Elliptocytes Not Reportable 07/20/21 07:59 Acanthocytes (Spur) Not Reportable 07/20/21 07:59 Rouleaux Not Reportable 07/20/21 07:59 Hemoglobin C Crystals Not Reportable 07/20/21 07:59 Schistocytes Not Reportable 07/20/21 07:59 Malaria parasites Not Reportable 07/20/21 07:59 Luis Bodies Not Reportable 07/20/21 07:59 Hem Pathologist Commnt No 07/20/21 07:59 PT 14.8 Sec. (12.2-14.9) 07/20/21 07:59 INR 1.11 (0.87-1.13) 07/20/21 07:59 Sodium 140 mmol/L (137-145) 07/22/21 04:57 Potassium 4.1 mmol/L (3.6-5.0) 07/22/21 04:57 Chloride 106.9 mmol/L (98-107) 07/22/21 04:57 Carbon Dioxide 20 mmol/L (22-30) L 07/22/21 04:57 Anion Gap 17 mmol/L 07/22/21 04:57 BUN 62 mg/dL (7-17) H 07/22/21 04:57 Creatinine 4.4 mg/dL (0.6-1.2) H 07/22/21 04:57 Estimated GFR 12 ml/min 07/22/21 04:57 BUN/Creatinine Ratio 14 % 07/22/21 04:57 Glucose 84 mg/dL (65-100) 07/22/21 04:57 Lactic Acid 0.70 mmol/L (0.7-2.0) 07/20/21 10:22 Calcium 8.9 mg/dL (8.4-10.2) 07/22/21 04:57 Phosphorus 5.30 mg/dL (2.5-4.5) H 07/21/21 04:56 Magnesium 2.40 mg/dL (1.7-2.3) H 07/20/21 14:48 Total Bilirubin 0.50 mg/dL (0.1-1.2) 07/20/21 07:59 AST 14 units/L (5-40) 07/20/21 07:59 ALT 10 units/L (7-56) 07/20/21 07:59 Alkaline Phosphatase 81 units/L (35-129) 07/20/21 07:59 Troponin T 0.027 ng/mL (0.00-0.029) 07/20/21 14:48 NT-Pro-B Natriuret Pep 77854 pg/mL (0-900) H 07/20/21 14:48 Total Protein 6.7 g/dL (6.3-8.2) 07/20/21 07:59 Albumin 4.1 g/dL (3.9-5) 07/20/21 07:59 Albumin/Globulin Ratio 1.6 % 07/20/21 07:59 Triglycerides 66 mg/dL (2-149) 07/20/21 07:59 Cholesterol 210 mg/dL (50-199) H 07/20/21 07:59 LDL Cholesterol Direct 161 mg/dL (50-130) H 07/20/21 07:59 HDL Cholesterol 49 mg/dL (40-59) 07/20/21 07:59 Cholesterol/HDL Ratio 4.28 % 07/20/21 07:59 TSH 8.620 mlU/mL (0.270-4.200) H 07/20/21 18:08 Free T4 1.59 ng/dL (0.76-1.46) H 07/20/21 18:08 Urine Eosinophils None seen (None Seen) 07/20/21 13:15 Urine Creatinine 174.9 mg/dL (0.1-20.0) H 07/20/21 13:15 Protein/Creatinin Ratio 0.39 07/20/21 13:15 Urine Sodium 47 mmol/L 07/20/21 13:15 Urine Total Protein 68 mg/dL (5-11.8) H 07/20/21 13:15 Microbiology: Microbiology 07/20/21 10:22 Peripheral/Venous Blood Culture - Preliminary NO GROWTH AFTER 24 HOURS 07/20/21 10:22 Peripheral/Venous Blood Culture - Preliminary NO GROWTH AFTER 24 HOURS Active Medications - Current Medications Current Medications: Generic Name Dose Route Start Last Admin Trade Name Freq PRN Reason Stop Dose Admin Acetaminophen 650 mg 07/20/21 12:30 Acetaminophen 325 Mg Tab PO Q4H PRN Pain MILD(1-3)/Fever >100.5/VERA Albuterol 2.5 mg 07/20/21 12:30 Albuterol 2.5 Mg/3 Ml Nebu IH Q4HRT PRN Shortness Of Breath Atorvastatin Calcium 40 mg 07/20/21 22:00 07/22/21 05:46 Atorvastatin 40 Mg Tab PO Not Given QHS ZOLTAN Calcitriol 0.5 mcg 07/21/21 10:00 07/22/21 05:43 Calcitriol 0.5 Mcg Cap PO Not Given QDAY ZOLTAN Carvedilol 3.125 mg 07/22/21 10:00 Carvedilol 3.125 Mg Tab PO BID ZOLTAN Docusate Sodium 100 mg 07/20/21 22:00 07/22/21 05:45 Docusate Sodium 100 Mg Cap PO Not Given BID ZOLTAN Furosemide 20 mg 07/22/21 06:00 07/22/21 06:09 Furosemide 40 Mg/4 Ml Inj IV 20 mg 0600,1800 [facility] Administration Hydralazine HCl 25 mg 07/20/21 14:00 07/22/21 06:09 Hydralazine 25 Mg Tab PO 25 mg Q8HR ZOLTAN Administration Hydromorphone HCl 0.5 mg 07/20/21 12:30 07/20/21 14:34 Hydromorphone 1 Mg/1 Ml Inj IV 0.5 mg Q24H PRN Administration Pain , Severe (7-10) Isosorbide Mononitrate 30 mg 07/21/21 16:00 07/22/21 05:44 Isosorbide Mononitrate Er 30 Mg Tab PO Not Given QDAY [facility] Nicotine 21 mg 07/21/21 06:00 07/22/21 05:43 Nicotine 21 Mg/24 Hr Patch TD Not Given QDAY@0600 [facility] Ondansetron HCl 4 mg 07/20/21 12:30 07/22/21 01:00 Ondansetron 4 Mg/2 Ml Inj IV 4 mg Q8H PRN Administration Nausea And Vomiting Oxycodone/Acetaminophen 1 tab 07/20/21 12:30 07/21/21 20:47 Oxycodone /Acetaminophen 5-325mg Tab PO 1 tab Q12H PRN Administration Pain, Moderate (4-6) Sodium Bicarbonate 650 mg 07/20/21 22:00 07/22/21 05:44 Sodium Bicarbonate 650 Mg Tab PO Not Given BID [facility] Sodium Chloride 10 ml 07/20/21 22:00 07/22/21 05:46 Sodium Chloride 0.9% 10 Ml Flush Syringe IV Not Given BID ZOLTAN Sodium Chloride 10 ml 07/20/21 12:30 Sodium Chloride 0.9% 10 Ml Flush Syringe IV PRN PRN LINE FLUSH Spironolactone 25 mg 07/21/21 16:00 07/22/21 05:44 Spironolactone 25 Mg Tab PO Not Given QDAY [facility]
--- NOTE | 2021-07-22 08:53 | Progress Note ---
Assessment and Plan Chest Pain Nausea/Vomiting Advanced Chronic Kidney Disease, stage 4-5 Hypertension CHF AAA Plan: -kidney function cont to fluctuate but overall stable since admission -Serum creatinine in May 2018 was 3.8 and 3.9, has advanced renal disease, she is really end stage -CXR showed- Bilateral Pleural Effusions, mild volume overload or CHF -cont lasix as needed -Renal ultrasound- No hydronephrosis. Medical renal disease. -Obtain daily weights -Urine lytes reviewed. No urine eosinophils. 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 within 5-7 days of discharge Subjective Date of service: 07/22/21 Principal diagnosis: CKD stage 5 Interval history: no acute distress Objective - Vital Signs Vital signs: Vital Signs - 12hr 07/21/21 07/21/21 07/21/21 21:01 21:11 21:21 Temperature Pulse Rate 59 L 59 L 58 L Respiratory 18 21 20 Rate Blood Pressure 150/77 150/77 142/68 O2 Sat by Pulse 92 98 98 Oximetry 07/21/21 07/21/21 07/21/21 21:31 21:41 21:51 Temperature Pulse Rate 66 52 L 55 L Respiratory 26 H 22 12 Rate Blood Pressure 142/68 142/68 135/63 O2 Sat by Pulse 92 93 97 Oximetry 07/21/21 07/21/21 07/21/21 22:01 22:11 22:21 Temperature Pulse Rate 62 58 L 58 L Respiratory 23 16 18 Rate Blood Pressure 135/63 135/63 153/83 O2 Sat by Pulse 84 93 92 Oximetry 07/21/21 07/21/21 07/21/21 22:31 22:41 22:51 Temperature Pulse Rate 56 L 57 L 59 L Respiratory 16 19 14 Rate Blood Pressure 153/83 153/83 144/77 O2 Sat by Pulse 93 96 96 Oximetry 07/21/21 07/21/21 07/21/21 23:01 23:11 23:20 Temperature Pulse Rate 64 53 L 48 L Respiratory 23 17 19 Rate Blood Pressure 144/77 144/77 150/77 O2 Sat by Pulse 88 98 97 Oximetry 07/21/21 07/21/21 07/22/21 23:31 23:41 00:09 Temperature 97.3 F L Pulse Rate 60 59 L 65 Respiratory 21 18 18 Rate Blood Pressure 141/67 141/67 173/88 O2 Sat by Pulse 95 97 94 Oximetry 07/22/21 07/22/21 07/22/21 00:16 00:24 03:46 Temperature 97.4 F L Pulse Rate 59 L 59 L Respiratory 12 Rate Blood Pressure 137/64 O2 Sat by Pulse 98 94 Oximetry 07/22/21 07:39 Temperature 97.7 F Pulse Rate 65 Respiratory 18 Rate Blood Pressure 137/64 O2 Sat by Pulse 96 Oximetry - General Appearance General appearance: well-developed, well-nourished EENT: ATNC, PERRL, mucous membranes moist Neck: no JVD, no carotid bruit Respiratory: Present: Clear to Ascultation Cardiology: regular, S1S2 Gastrointestinal: normoactive bowel sounds, no tenderness, no distended Integumentary: no rash, warm and dry Neurologic: no focal deficit, no asterixis Musculoskeletal: other (no edema in BLE) Psychiatric: cooperative - Lab 07/20/21 07:59 07/22/21 04:57 Most recent lab results Calcium 8.9 mg/dL (8.4-10.2) 07/22/21 04:57 Phosphorus 5.30 mg/dL (2.5-4.5) H 07/21/21 04:56 Magnesium 2.40 mg/dL (1.7-2.3) H 07/20/21 14:48 Urine Creatinine 174.9 mg/dL (0.1-20.0) H 07/20/21 13:15 Urine Sodium 47 mmol/L 07/20/21 13:15 Urine Total Protein 68 mg/dL (5-11.8) H 07/20/21 13:15 Medications & Allergies - Medications Allergies/Adverse Reactions: Allergies morphine Allergy (Verified 07/20/21 07:16) Unknown Penicillins Allergy (Verified 07/20/21 07:16) Itching Home Medications: Home Medications Medication Instructions Recorded Confirmed Last Taken Type AtorvaSTATin [Lipitor] 40 mg PO QHS 05/31/18 05/31/18 05/30/18 History Docusate Sodium [Colace CAP] 100 mg PO BID 05/31/18 05/31/18 05/30/18 History Metoprolol [Lopressor TAB] 25 mg PO DAILY 05/31/18 05/31/18 05/30/18 History Sodium Bicarbonate 650 mg PO BID 05/31/18 05/31/18 05/30/18 History calcitrioL [Rocaltrol] 0.5 mcg PO QDAY 05/31/18 05/31/18 05/30/18 History hydrALAZINE [Apresoline TAB] 25 mg PO Q8HR 05/31/18 05/31/18 05/30/18 History Albuterol Sulfate [Ventolin HFA] 2 puff IH Q4H PRN #1 pump 06/04/18 Unknown Rx Nicotine [Habitrol] 21 mg TD QDAY@0600 30 Days patch 06/04/18 Unknown Rx Nystatin Cream [Mycostatin Cream] 1 applic TP TID 7 Days tube 06/04/18 Unknown Rx traMADoL [Ultram 50 MG tab] 50 mg PO Q12H PRN #10 tablet 06/04/18 Unknown Rx Active Medications: Generic Name Dose Route Start Last Admin Trade Name Freq PRN Reason Stop Dose Admin Acetaminophen 650 mg 07/20/21 12:30 Acetaminophen 325 Mg Tab PO Q4H PRN Pain MILD(1-3)/Fever >100.5/VERA Albuterol 2.5 mg 07/20/21 12:30 Albuterol 2.5 Mg/3 Ml Nebu IH Q4HRT PRN Shortness Of Breath Atorvastatin Calcium 40 mg 07/20/21 22:00 07/22/21 05:46 Atorvastatin 40 Mg Tab PO Not Given QHS ZOLTAN Calcitriol 0.5 mcg 07/21/21 10:00 07/22/21 05:43 Calcitriol 0.5 Mcg Cap PO Not Given QDAY ZOLTAN Carvedilol 3.125 mg 07/22/21 10:00 Carvedilol 3.125 Mg Tab PO BID ZOLTAN Docusate Sodium 100 mg 07/20/21 22:00 07/22/21 05:45 Docusate Sodium 100 Mg Cap PO Not Given BID ZOLTAN Furosemide 20 mg 07/22/21 06:00 07/22/21 06:09 Furosemide 40 Mg/4 Ml Inj IV 20 mg 0600,1800 [facility] Administration Hydralazine HCl 25 mg 07/20/21 14:00 07/22/21 06:09 Hydralazine 25 Mg Tab PO 25 mg Q8HR ZOLTAN Administration Hydromorphone HCl 0.5 mg 07/20/21 12:30 07/20/21 14:34 Hydromorphone 1 Mg/1 Ml Inj IV 0.5 mg Q24H PRN Administration Pain , Severe (7-10) Isosorbide Mononitrate 30 mg 07/21/21 16:00 07/22/21 05:44 Isosorbide Mononitrate Er 30 Mg Tab PO Not Given QDAY [facility] Nicotine 21 mg 07/21/21 06:00 07/22/21 05:43 Nicotine 21 Mg/24 Hr Patch TD Not Given QDAY@0600 [facility] Ondansetron HCl 4 mg 07/20/21 12:30 07/22/21 01:00 Ondansetron 4 Mg/2 Ml Inj IV 4 mg Q8H PRN Administration Nausea And Vomiting Oxycodone/Acetaminophen 1 tab 07/20/21 12:30 07/21/21 20:47 Oxycodone /Acetaminophen 5-325mg Tab PO 1 tab Q12H PRN Administration Pain, Moderate (4-6) Sodium Bicarbonate 650 mg 07/20/21 22:00 07/22/21 05:44 Sodium Bicarbonate 650 Mg Tab PO Not Given BID [facility] Sodium Chloride 10 ml 07/20/21 22:00 07/22/21 05:46 Sodium Chloride 0.9% 10 Ml Flush Syringe IV Not Given BID ZOLTAN Sodium Chloride 10 ml 07/20/21 12:30 Sodium Chloride 0.9% 10 Ml Flush Syringe IV PRN PRN LINE FLUSH Spironolactone 25 mg 07/21/21 16:00 07/22/21 05:44 Spironolactone 25 Mg Tab PO Not Given QDAY [facility]
--- NOTE | 2021-07-22 10:13 | Electrocardiograph Report ---
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
[2021-07-22] MEDS: carvediloL 3.125 MG TAB PO SCH ×2 (10:31→22:27)
--- NOTE | 2021-07-22 12:10 | Progress Note ---
Assessment and Plan Chest pain * Patient is currently chest pain-free. EKG shows sinus bradycardia 55 no acute ischemic changes. Troponins are nonspecific, subacute and trending downward. Chest pain is reproducible and exacerbated with manipulation and movement. AMI ruled out. * Lexiscan MPI stress test 04/01/2019: Moderate to severe post stress LV systolic dysfunction with no reversible ischemia. * Patient states she is followed by "Dr. Baldwin, cardiology" in [facility] and was last seen several weeks ago. She also reports that she has undergone all recommended testing. No records are available for review. In light of severe kidney disease and reported cardiology compliance, no plans for further ischemic evaluation. Recommend patient follow-up with her established cardiology within 1 to 2 weeks of discharge. HFrEF * Echo 07/20/2021- EF 30 to 35%, left ventricle is mildly dilated, moderate global hypokinesis of left ventricle, right ventricle is mildly dilated, right ventricle is hypokinetic, left atrium is mildly dilated, right atrium is normal size mild mitral regurgitation, moderate left pleural effusion * CXR shows bilateral pleural effusions and mild volume overload. Per documentation patient skipped several days of her home Lasix. Agree with Lasix IV 20mg as long as urine production is sufficient. * Hold HOMAR/ARB in setting of MEÑO/CKD. MEÑO/CKD * Avoid nephrotoxic agents. * Volume control per nephrology * Per documentation patient does not want dialysis AAA * Vascular Consulted Patient is currently in stable cardiac condition, chest pain is resolved. No plans for further ischemic eval in inpatient setting. Recommend patient follow-up with her established cardiology within 1 to 2 weeks of discharge. Alternatively patient may follow-up with Dr Gomez with [facility] heart specialists within 1 to 2 weeks of discharge as needed. #[phone] Patient seen in conjunction with Dr. Gomez who agrees with this plan - Patient Problems (1) CHF (congestive heart failure) Current Visit: Yes Status: Acute Qualifiers: Heart failure type: systolic Heart failure chronicity: acute Qualified Code(s): I50.21 - Acute systolic (congestive) heart failure (2) Nausea and vomiting Current Visit: Yes Status: Acute (3) Nicotine dependence Current Visit: Yes Status: Acute Qualifiers: Nicotine product type: cigarettes Substance use status: in withdrawal Qualified Code(s): F17.213 - Nicotine dependence, cigarettes, with withdrawal (4) Pleural effusion Current Visit: Yes Status: Acute (5) Acute renal failure superimposed on stage 4 chronic kidney disease Current Visit: No Status: Acute (6) CAD (coronary artery disease) Current Visit: No Status: Acute (7) GERD (gastroesophageal reflux disease) Current Visit: No Status: Acute (8) HTN (hypertension) Current Visit: No Status: Chronic (9) Hyperlipidemia Current Visit: No Status: Chronic Subjective Date of service: 07/22/21 Principal diagnosis: CKD stage 5 Interval history: Patient resting comfortably in bed, no chest pain or shortness of breath overnight Telemetry reviewed: Sinus rhythm 60 with 1st degree / wenkchebach AV block noted. Objective Last Vital Signs Temp 97.7 F 07/22/21 07:39 Pulse 65 07/22/21 07:39 Resp 18 07/22/21 07:39 BP 137/64 07/22/21 07:39 Pulse Ox 99 07/22/21 10:00 - Physical Examination General: Appears Well HEENT: Positive: PERRL Neck: Positive: trachea midline Cardiac: Positive: Reg Rate and Rhythm, S1/S2 Lungs: Positive: Rales Neuro: Positive: Grossly Intact Abdomen: Positive: Soft, Active Bowel Sounds Skin: Negative: Rash, Wound Musculoskeletal: No Fluid Collection, No Pain, Normal Range of Motion Extremities: Present: upper extr. pulses, lower extr. pulses, edema (Trace) - Labs and Meds Comprehensive Metabolic Panel 07/22/21 Range/Units 04:57 Sodium 140 (137-145) mmol/L Potassium 4.1 (3.6-5.0) mmol/L Chloride 106.9 (98-107) mmol/L Carbon Dioxide 20 L (22-30) mmol/L BUN 62 H (7-17) mg/dL Creatinine 4.4 H (0.6-1.2) mg/dL Glucose 84 (65-100) mg/dL Calcium 8.9 (8.4-10.2) mg/dL - Imaging and Cardiology EKG: report reviewed Echo: report reviewed (Echocardiogram 07/20/2021: LVEF 30 to 35%. LV mildly dilated. LV SF moderately decreased. Moderate global hypokinesis of the LV. RV is hypokinetic, mildly dilated. Mild MR. Moderate left pleural effusion noted) - EKG Sinus rhythms and dysrhythmias: sinus rhythm Chamber hypertrophy or enlargement: left ventricular hypertro
--- NOTE | 2021-07-22 15:13 | Vascular Lab Report ---
DUPLEX DOPPLER LOWER EXTREMITY ARTERIAL, BILATERAL INDICATION / CLINICAL INFORMATION: pvd with aaa. TECHNIQUE: Arterial duplex examination of both lower extremities performed using B-mode, color flow a nd spectral Doppler assessment. COMPARISON: None available. FINDINGS: RIGHT: Common Femoral Artery: PSV 129 cm/sec. Triphasic waveform. Proximal SFA: PSV 107 cm/sec. Biphasic waveform. Mid SFA: PSV 117 cm/sec. Biphasic waveform. Distal SFA: PSV 104 cm/sec. Biphasic waveform. Popliteal artery: PSV 75 cm/sec. Biphasic waveform. Posterior tibial artery: PSV 75 cm/sec. Triphasic waveform. Dorsalis Pedis Artery: PSV 22 cm/sec. Monophasic waveform. LEFT: Common Femoral Artery: PSV 125 cm/sec. Biphasic waveform. Proximal SFA: PSV 95 cm/sec. Biphasic waveform. Mid SFA: PSV 144 cm/sec. Monophasic waveform. Distal SFA: PSV 66 cm/sec. Monophasic waveform. Popliteal artery: PSV 56 cm/sec. Monophasic waveform. Posterior tibial artery: PSV 26 cm/sec. Monophasic waveform. Dorsalis Pedis Artery: PSV 32 cm/sec. Monophasic waveform. Right LISA: Not performed. Left LISA: Not performed. IMPRESSION: Multifocal atherosclerotic disease is present within both lower extremities with transiti ons from triphasic to biphasic and monophasic flow bilaterally. These findings may suggest moderate p eripheral vascular disease. However, no significant focal velocity change is seen to strongly indicat e a hemodynamically significant segmental stenosis. Ankle-Brachial Index (LISA): - Calcified arteries > 1.4 - Normal = 0.9-1.4 - Mild PAD = 0.7-0.89 - Moderate PAD = 0.51-0.69 - Severe PAD < 0.5 Doppler Waveform: - Triphasic is normal. - Biphasic is abnormal if clear transition from triphasic signal along vascular tree. - Monophasic is abnormal. Scribed by: Kandy Ulloa RDMS, RVT Scribed: 07/22/2021 12:10 PM I have reviewed the images, agree with this report, and edited this report as needed. Signer Name: Jared Andrade MD Signed: 07/22/2021 3:09 PM Workstation Name: [id number]
[2021-07-23] MEDS: hydrALAZINE 25 MG TAB PO SCH (06:00)
[2021-07-23] MEDS: NICOTINE 21 MG/24 HR PATCH TD SCH (06:00)
[2021-07-23 06:02] LABS: Calcium 9.2 mg/dL (8.4-10.2)
[2021-07-23] MEDS: FUROSEMIDE 40 MG/4 ML INJ IV SCH (06:02)
--- NOTE | 2021-07-23 08:32 | Discharge Summary ---
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 Patient is reports "I am not feeling good this morning". Patient states that she has experienced generalized weakness, nausea, chest discomfort, body aches. Patient knowledges decreased exercise tolerance, dyspnea on exertion. Patient transported to [facility] via private vehicle for further care and evaluation of the aforementioned symptoms. The patient was seen and evaluated in the emergency department. All lab and imaging studies reviewed. Patient found to have MEÑO with ATN with possible development of end-stage renal disease, metabolic acidosis, as well as clinical symptoms consistent with CHF decompensation. Patient admitted to telemetry and initiated on CHF protocol. Nephrology team consulted in ED. Cardiology team consulted in ED. vascular surgery consulted in the ED for possible dialysis catheter placement. Patient denies fever, chills, chest pain, palpitation, productive cough, skin rash, recent ill contacts, or known exposure to COVID-19. Patient has not been vaccinated against coronavirus. Past admission on 05/21/2018 reviewed. All medication listed at time of admission has been reconciled. Advanced care planning conducted in ED. Assessement and Plan: (1) Acute decompensated Heart Failure with Reduced Ejection Fraction. Plan to address problem: CHF protocol: Chest x-ray, BNP, thyroid panel, magnesium level, blood pressure control, diuresis with Lasix, strict I's/O, monitor urine output every shift, daily weight, afterload reduction 07/20 ECHO: LVEF 30-35%. global LV hypokinesis. Please refer to official report. Patient has a history of noncompliance and admits this. Likely why she has decompensated. Needs optimization of GDMT: continue Lasix IV, home metoprolol resumed, Add aldactone 25 mg po daily Might benefit from BiDil? Will defer to cardiology. Cardiology consulted on admission. will follow for recommendations (3) Abdominal Aortic Aneurysm Plan to address problem: Infrarenal saccular aneurysm on CTAP appreciated. Inc in size from 2.5 cm in 2018 to 3.5 cm on study from this admission. Vascular surgery consulted, not urgent plan to intervene. Would benefit from additional imaging however patient has CKD and cannot receive contrast. Recommend optimizing from medical standpoint. 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 Was on HD for 8 months total. follows with Dr. Colbert as an outpatient Baseline Cr 3.8, patient produces urine. Cr this admission 4.3. States she is still producing urine. She is overall against dialysis per nephrology note strict I's/O, monitor urine output every shift, avoid nephrotoxic agents. Nephrology following (3) Acidosis (resolving) Plan to address problem: Nephrology following (4) Nicotine dependence Plan to address problem: Smoking cessation counseling, nicotine patch, behavior change counseling, +15 minutes. (5) Nausea and vomiting (resolved) Plan to address problem: Supportive care, dialysis as per renal team, antiemetic therapy as needed. (6) DVT prophylaxis Current Visit: Yes Status: Acute Plan to address problem: SCD to bilateral lower extremities while in bed, patient is ambulatory (7) Advance care planning Current Visit: Yes Status: Acute Plan to address problem: Disease education conducted, care plan discussed, diagnosis discussed, prognosis discussed, patient is full code, patient knowledges understanding agreement with care plan, +30 minutes. Hospital Course to date: 07/21: Resting comfortably. Satting in low 90's on room air. Exam demonstrates continue bibasilar crackles. Added aldactone to regimen. Might be a good candidate for Bidil but will defer to cardiology. No current plans by vascular to address AAA given decompensated HF and advanced CKD. 07/22: imdur started by cardiology team. chest pain worsed with palpation...likely msk in etiology. Cardiology does not plan for any further ischemic eval. plan for d/c tomorrow. 07/23: patient will be d/c home today. Disposition: 01 HOME / SELF CARE / HOMELESS Final Discharge Diagnosis (Prints w/discharge instructions): Acute systolic heart failure exacerabation. Time spent for discharge: 35 - Discharge Diagnoses (1) Acute systolic heart failure Status: Acute (2) Saccular aneurysm Status: Acute (3) CKD (chronic kidney disease) Status: Chronic (4) Acute costochondritis Status: Acute (5) Acute renal failure superimposed on stage 4 chronic kidney disease Status: Acute (6) CAD (coronary artery disease) Status: Acute (7) GERD (gastroesophageal reflux disease) Status: Acute (8) HTN (hypertension) Status: Chronic (9) Hyperlipidemia Status: Chronic Core Measure Documentation - Palliative Care Palliative Care/ Comfort Measures: Not Applicable - Core Measures Any of the following diagnoses?: heart failure, none - Heart Failure Discharge Requirements HOMAR/ARB for LVSD if EF <40%: No Reason for no HOMAR/ARB: Renal impairment Beta hardeep at discharge: Yes Exam - Physical Exam Narrative exam: General appearance: Present: mild distress - EENT Eyes: Present: PERRL ENT: hearing intact, clear oral mucosa - Neck Neck: Present: supple, normal ROM - Respiratory Respiratory effort: normal Respiratory: bilateral: diminished, rales - Cardiovascular Heart Sounds: Present: S1 & S2. Absent: rub, click - Extremities Extremities: pulses symmetrical, No edema Peripheral Pulses: within normal limits - Abdominal General gastrointestinal: Present: soft, non-tender, non-distended, normal bowel sounds Female genitourinary: Present: normal - Integumentary Integumentary: Present: clear, warm, dry - Musculoskeletal Musculoskeletal: gait normal, strength equal bilaterally - Psychiatric Psychiatric: appropriate mood/affect, intact judgment & insight - Neurologic Neurologic: CNII-XII intact, moves all extremities - Constitutional Vitals: Temp Pulse Resp BP Pulse Ox 97.6 F 62 16 139/71 94 07/23/21 06:10 07/23/21 06:10 07/23/21 06:10 07/23/21 06:10 07/23/21 06:10 Plan Follow up with: PRIMARY CARE, [Primary Care Provider] - 3-5 Days Prescriptions: AtorvaSTATin [Lipitor] 40 mg PO QHS 30 Days #30 tab Spironolactone [Aldactone] 25 mg PO QDAY 30 Days #30 tablet hydrALAZINE [Apresoline TAB] 25 mg PO Q8HR 30 Days #90 tab Docusate Sodium [Colace CAP] 100 mg PO BID 30 Days #60 cap carvediloL [Coreg] 3.125 mg PO BID 30 Days #60 tablet ISOSORBIDE MONOnitrate [Imdur ER] 30 mg PO QDAY 30 Days #30 tab calcitrioL [Rocaltrol] 0.5 mcg PO QDAY 30 Days #30 cap
--- NOTE | 2021-07-23 09:03 | Progress Note ---
Assessment and Plan Chest Pain Nausea/Vomiting Advanced Chronic Kidney Disease, stage 4-5 Hypertension CHF AAA Plan: -no significant change in kidney function, cont to have advanced CKD -CXR showed- Bilateral Pleural Effusions, mild volume overload or CHF -cont lasix as needed -Renal ultrasound- No hydronephrosis. Medical renal disease. -Obtain daily weights -Urine lytes reviewed. No urine eosinophils. -Avoid nephrotoxic agents -Renally dose medications -Monitor I/O's daily-asked nurse to measure UOP -Will need HD in very near future as she really has end stage renal disease, but she does not want to commit to dialysis, can be discharged from nephrology standpoint to f/u with her outpatient international coordinator within 5-7 days of discharge Subjective Date of service: 07/23/21 Principal diagnosis: CKD stage 5 Interval history: no overnight events Objective - Vital Signs Vital signs: Vital Signs - 12hr 07/22/21 07/22/21 07/23/21 22:27 23:33 00:00 Temperature 98.4 F Pulse Rate 67 69 Respiratory 16 16 Rate Respiratory 16 Rate [Abdomen] Blood Pressure 141/76 161/81 Blood Pressure [Left] O2 Sat by Pulse 92 97 Oximetry 07/23/21 07/23/21 06:00 06:10 Temperature 97.6 F Pulse Rate 62 62 Respiratory 16 Rate Respiratory Rate [Abdomen] Blood Pressure 139/71 Blood Pressure 139/71 [Left] O2 Sat by Pulse 94 Oximetry - General Appearance General appearance: well-developed, well-nourished EENT: ATNC, PERRL, mucous membranes moist Neck: no JVD, no carotid bruit Respiratory: Present: Clear to Ascultation. Absent: Rales, Ronchi Cardiology: regular, S1S2 Gastrointestinal: normoactive bowel sounds, no tenderness, no distended, no masses Integumentary: no rash, warm and dry Neurologic: no focal deficit, no asterixis, alert and oriented x3 Musculoskeletal: other (no edema in BLE) Psychiatric: mood/affect appropriate, cooperative - Lab 07/20/21 07:59 07/23/21 05:02 Most recent lab results Calcium 9.2 mg/dL (8.4-10.2) 07/23/21 05:02 Phosphorus 5.30 mg/dL (2.5-4.5) H 07/21/21 04:56 Magnesium 2.40 mg/dL (1.7-2.3) H 07/20/21 14:48 Urine Creatinine 174.9 mg/dL (0.1-20.0) H 07/20/21 13:15 Urine Sodium 47 mmol/L 07/20/21 13:15 Urine Total Protein 68 mg/dL (5-11.8) H 07/20/21 13:15 Medications & Allergies - Medications Allergies/Adverse Reactions: Allergies morphine Allergy (Verified 07/20/21 07:16) Unknown Penicillins Allergy (Verified 07/20/21 07:16) Itching Home Medications: Home Medications Medication Instructions Recorded Confirmed Last Taken Type AtorvaSTATin [Lipitor] 40 mg PO QHS 05/31/18 05/31/18 05/30/18 History Docusate Sodium [Colace CAP] 100 mg PO BID 05/31/18 05/31/18 05/30/18 History Metoprolol [Lopressor TAB] 25 mg PO DAILY 05/31/18 05/31/18 05/30/18 History Sodium Bicarbonate 650 mg PO BID 05/31/18 05/31/18 05/30/18 History calcitrioL [Rocaltrol] 0.5 mcg PO QDAY 05/31/18 05/31/18 05/30/18 History hydrALAZINE [Apresoline TAB] 25 mg PO Q8HR 05/31/18 05/31/18 05/30/18 History Albuterol Sulfate [Ventolin HFA] 2 puff IH Q4H PRN #1 pump 06/04/18 Unknown Rx Nicotine [Habitrol] 21 mg TD QDAY@0600 30 Days patch 06/04/18 Unknown Rx Nystatin Cream [Mycostatin Cream] 1 applic TP TID 7 Days tube 06/04/18 Unknown Rx traMADoL [Ultram 50 MG tab] 50 mg PO Q12H PRN #10 tablet 06/04/18 Unknown Rx Active Medications: Generic Name Dose Route Start Last Admin Trade Name Freq PRN Reason Stop Dose Admin Acetaminophen 650 mg 07/20/21 12:30 Acetaminophen 325 Mg Tab PO Q4H PRN Pain MILD(1-3)/Fever >100.5/VERA Albuterol 2.5 mg 07/20/21 12:30 Albuterol 2.5 Mg/3 Ml Nebu IH Q4HRT PRN Shortness Of Breath Atorvastatin Calcium 40 mg 07/20/21 22:00 07/22/21 22:27 Atorvastatin 40 Mg Tab PO 40 mg QHS ZOLTAN Administration Calcitriol 0.5 mcg 07/21/21 10:00 07/22/21 10:32 Calcitriol 0.5 Mcg Cap PO 0.5 mcg QDAY ZOLTAN Administration Carvedilol 3.125 mg 07/22/21 10:00 07/22/21 22:27 Carvedilol 3.125 Mg Tab PO 3.125 mg BID ZOLTAN Administration Docusate Sodium 100 mg 07/20/21 22:00 07/22/21 22:27 Docusate Sodium 100 Mg Cap PO 100 mg BID ZOLTAN Administration Furosemide 20 mg 07/22/21 06:00 07/23/21 06:02 Furosemide 40 Mg/4 Ml Inj IV 20 mg 0600,1800 ZOLTAN Administration Hydralazine HCl 25 mg 07/20/21 14:00 07/23/21 06:00 Hydralazine 25 Mg Tab PO 25 mg Q8HR ZOLTAN Administration Hydromorphone HCl 0.5 mg 07/20/21 12:30 07/20/21 14:34 Hydromorphone 1 Mg/1 Ml Inj IV 0.5 mg Q24H PRN Administration Pain , Severe (7-10) Isosorbide Mononitrate 30 mg 07/21/21 16:00 07/22/21 10:31 Isosorbide Mononitrate Er 30 Mg Tab PO 30 mg QDAY ZOLTAN Administration Nicotine 21 mg 07/21/21 06:00 07/23/21 06:00 Nicotine 21 Mg/24 Hr Patch TD 21 mg QDAY@0600 ZOLTAN Administration Ondansetron HCl 4 mg 07/20/21 12:30 07/22/21 01:00 Ondansetron 4 Mg/2 Ml Inj IV 4 mg Q8H PRN Administration Nausea And Vomiting Oxycodone/Acetaminophen 1 tab 07/20/21 12:30 07/21/21 20:47 Oxycodone /Acetaminophen 5-325mg Tab PO 1 tab Q12H PRN Administration Pain, Moderate (4-6) Sodium Bicarbonate 650 mg 07/20/21 22:00 07/22/21 22:26 Sodium Bicarbonate 650 Mg Tab PO 650 mg BID ZOLTAN Administration Sodium Chloride 10 ml 07/20/21 22:00 07/22/21 22:00 Sodium Chloride 0.9% 10 Ml Flush Syringe IV 10 ml BID ZOLTAN Administration Sodium Chloride 10 ml 07/20/21 12:30 Sodium Chloride 0.9% 10 Ml Flush Syringe IV PRN PRN LINE FLUSH Spironolactone 25 mg 07/21/21 16:00 07/22/21 10:32 Spironolactone 25 Mg Tab PO 25 mg QDAY ZOLTAN Administration
[2021-07-23] MEDS: DOCUSATE SODIUM 100 MG CAP PO SCH (10:47)
[2021-07-23] MEDS: CALCITRIOL 0.5 MCG CAP PO SCH (10:47)
[2021-07-23] MEDS: SODIUM BICARBONATE 650 MG TAB PO SCH (10:47)
[2021-07-23] MEDS: SPIRONOLACTONE 25 MG TAB PO SCH (10:48)
[2021-07-23] MEDS: carvediloL 3.125 MG TAB PO SCH (10:48)
[2021-07-23 12:41] VITALS: BP 169/76
--- NOTE | 2021-07-23 12:42 | Progress Note ---
Assessment and Plan HFrEF CAD Chest pain HTN Volume overload * EKG showed sinus lorraine 55 with LVH. No acute ischemic changes. Troponins were mildly elevated 0.03->0.02->0.02. Chest pain reproducible by movement and palpation. AMI ruled out * BNP noted to be elevated [id number]. CXR shows bilateral pleural effusions and mild volume overload. Per documentation patient skipped several days of her home Lasix * Echo 07/20/2021- EF 30 to 35%, left ventricle is mildly dilated, moderate global hypokinesis of left ventricle, right ventricle is mildly dilated, right ventricle is hypokinetic, left atrium is mildly dilated, right atrium is normal size mild mitral regurgitation, moderate left pleural effusion, * Hold HOMAR/ARB in until ok per nephrology CKD stage 4 * Nephrology is following * Per documentation patient does not want dialysis AAA * Vascular Consulted Patient is currently in stable cardiac condition, chest pain is resolved. No plans for further ischemic eval in inpatient setting. Recommend patient follow-up with her established cardiology within 1 to 2 weeks of discharge. Alternatively patient may follow-up with Dr Gomez with [facility] heart specialists within 1 to 2 weeks of discharge as needed. #[phone] - Patient Problems (1) CHF (congestive heart failure) Current Visit: Yes Status: Acute Qualifiers: Heart failure type: systolic Heart failure chronicity: acute Qualified Code(s): I50.21 - Acute systolic (congestive) heart failure (2) Nausea and vomiting Current Visit: Yes Status: Acute (3) Nicotine dependence Current Visit: Yes Status: Acute Qualifiers: Nicotine product type: cigarettes Substance use status: in withdrawal Qualified Code(s): F17.213 - Nicotine dependence, cigarettes, with withdrawal (4) Pleural effusion Current Visit: Yes Status: Acute (5) Acute renal failure superimposed on stage 4 chronic kidney disease Current Visit: No Status: Acute (6) CAD (coronary artery disease) Current Visit: No Status: Acute (7) GERD (gastroesophageal reflux disease) Current Visit: No Status: Acute (8) HTN (hypertension) Current Visit: No Status: Chronic (9) Hyperlipidemia Current Visit: No Status: Chronic Subjective Date of service: 07/23/21 Principal diagnosis: CKD stage 5 Interval history: Patient resting in bed with no complaints Patient sinus arrythmia 50s-60s with 1st degree block Objective Vital Signs Temp Pulse Resp Resp BP BP Pulse Ox 07/23/21 10:48 65 145/66 07/23/21 10:39 95 07/23/21 08:06 97.8 F 63 18 145/66 95 07/23/21 06:10 97.6 F 62 16 139/71 94 07/23/21 06:00 62 139/71 07/23/21 00:00 16 16 97 07/22/21 23:33 98.4 F 69 16 161/81 92 07/22/21 22:27 67 141/76 07/22/21 16:13 97.6 F 75 16 154/85 97 07/22/21 16:00 68 - Physical Examination General: Appears Well HEENT: Positive: PERRL Neck: Positive: trachea midline Cardiac: Positive: Regular Rate Lungs: Positive: Normal Breath Sounds Neuro: Positive: Grossly Intact Abdomen: Positive: Soft, Active Bowel Sounds Skin: Negative: Rash, Wound Musculoskeletal: No Fluid Collection, No Pain, Normal Range of Motion Extremities: Present: upper extr. pulses, lower extr. pulses, edema (Trace) - Labs and Meds Comprehensive Metabolic Panel 07/23/21 Range/Units 05:02 Sodium 141 (137-145) mmol/L Potassium 4.0 (3.6-5.0) mmol/L Chloride 108.2 H (98-107) mmol/L Carbon Dioxide 20 L (22-30) mmol/L BUN 63 H (7-17) mg/dL Creatinine 4.6 H (0.6-1.2) mg/dL Glucose 103 H (65-100) mg/dL Calcium 9.2 (8.4-10.2) mg/dL - Imaging and Cardiology EKG: report reviewed Echo: report reviewed (Echocardiogram 07/20/2021: LVEF 30 to 35%. LV mildly dilated. LV SF moderately decreased. Moderate global hypokinesis of the LV. RV is hypokinetic, mildly dilated. Mild MR. Moderate left pleural effusion noted) - Telemetry EKG Rhythm: 1st Degree HB - EKG Sinus rhythms and dysrhythmias: sinus rhythm Chamber hypertrophy or enlargement: left ventricular hypertro
== END 2021-07-23 14:00 | disposition home health service (06) | DRG 291 ==
LOC: ED 06:22 → 4A 11:34
PROVIDERS: ADMIT Internal Medicine; ATTEND Internal Medicine
DX: I13.2 Hypertensive heart and chronic kidney disease with heart failure and with stage 5 chronic kidney disease, or end stage renal disease (principal); I50.23 Acute on chronic systolic (congestive) heart failure; N17.0 Acute kidney failure with tubular necrosis; E87.2 Acidosis; J91.8 Pleural effusion in other conditions classified elsewhere; N18.5 Chronic kidney disease, stage 5; M94.0 Chondrocostal junction syndrome [Tietze]; I71.4 Abdominal aortic aneurysm, without rupture; Z88.5 Allergy status to narcotic agent; Z88.0 Allergy status to penicillin; E78.5 Hyperlipidemia, unspecified; I25.2 Old myocardial infarction; I25.10 Atherosclerotic heart disease of native coronary artery without angina pectoris; Z82.49 Family history of ischemic heart disease and other diseases of the circulatory system; Z71.6 Tobacco abuse counseling; F17.200 Nicotine dependence, unspecified, uncomplicated; K21.9 Gastro-esophageal reflux disease without esophagitis
CPT/HCPCS: 36415; 71046; 74176; 76770; 80048; 80053; 80061; 82140; 82570; 83735; 83880; 84100; 84156; 84300; 84439; 84443; 84484; 85007; 85025; 85610; 87040; 89050; 93005; 93306; 93925; G0378; A9270-GY; J0456; J0696; J1170; J1940; J2405

== ENCOUNTER 2021-10-24 16:37 | Emergency (ER) | payer MEDICARE ==
[2021-10-24 16:43] VITALS: BP 158/88
[2021-10-24 20:51] LABS: Mean Corpuscular HGB Conc 30 % (30-34); Mean Corpuscular Volume 83 fl (79-97); Platelet Count 147 K/mm3 (140-440); Red Blood Count 4.91 M/mm3 (3.65-5.03); Red Cell Distribution Width 19.2 % (13.2-15.2)
[2021-10-24 20:59] LABS: Hematocrit 40.8 % (30.3-42.9); Hemoglobin 12.3 gm/dl (10.1-14.3)
[2021-10-24 21:13] LABS: Albumin 4.1 g/dL (3.9-5)
[2021-10-24 21:54] LABS: Anisocytosis 1+; Platelet Estimate Consistent w Auto; Total Cells Counted 100
[2021-10-25 00:01] LABS: Bacteria,Urine 3+ /HPF (Negative); Bilirubin,Urine NEG (Negative); Blood,Urine NEG (Negative); Color,Urine Yellow (Yellow); Mucus,Urine FEW /HPF; Urobilinogen,Urine < 2.0 mg/dL (<2.0)
[2021-10-25] MEDS ORDERED: ONDANSETRON 4 MG/2 ML INJ IV ONE (00:18)
[2021-10-25] MEDS ORDERED: IPRATROPIUM/ALBUTEROL SULFATE 3 ML AMPUL.NEB IH ONE (00:18)
--- NOTE | 2021-10-25 00:23 | Emergency Department Report ---
HPI - General Chief Complaint: Nausea/Vomiting/Diarrhea Time Seen by Provider: 10/24/21 23:44 - HPI HPI: 66-year-old -[place] female presents to the emergency department via EMS from home with complaint of a 1 week history of nausea, vomiting, diarrhea and intermittent shortness of breath. Patient says that she has vomiting with any intake of liquids or solids. She denies any chest pain or abdominal pain, fever. She has a past medical history of end-stage renal disease not on hemodialysis and says she is currently being evaluated through [facility] for a kidney transplant. The patient also has a history of COPD (not O2 dependent), CHF, hypertension, abdominal aneurysm. Her primary care physician is a Dr. Jill Berry, but she has not seen them regarding her symptoms. No recent travel or sick contacts at home. ED Past Medical Hx - Past Medical History Hx Hypertension: Yes Hx Heart Attack/AMI: No (stent x1) Hx Congestive Heart Failure: Yes Hx Diabetes: No Hx Deep Vein Thrombosis: No Hx Renal Disease: Yes (left kidney no function, right has decreased function) Hx Asthma: No Hx COPD: Yes Hx HIV: No Additional medical history: gout, water retention - Surgical History Hx Coronary Stent: No Hx Pacemaker: No Hx Internal Defibrillator: No - Social History Smoking Status: Current Every Day Smoker - Medications Home Medications: Home Medications Medication Instructions Recorded Confirmed Last Taken Type AtorvaSTATin [Lipitor] 40 mg PO QHS 30 Days #30 tab 07/23/21 Unknown Rx Docusate Sodium [Colace CAP] 100 mg PO BID 30 Days #60 cap 07/23/21 Unknown Rx Furosemide [Lasix] 20 mg PO BID 30 Days #60 tablet 07/23/21 Unknown Rx ISOSORBIDE MONOnitrate [Imdur ER] 30 mg PO QDAY 30 Days #30 tab 07/23/21 Unknown Rx Spironolactone [Aldactone] 25 mg PO QDAY 30 Days #30 tablet 07/23/21 Unknown Rx calcitrioL [Rocaltrol] 0.5 mcg PO QDAY 30 Days #30 cap 07/23/21 Unknown Rx carvediloL [Coreg] 3.125 mg PO BID 30 Days #60 tablet 07/23/21 Unknown Rx hydrALAZINE [Apresoline TAB] 25 mg PO Q8HR 30 Days #90 tab 07/23/21 Unknown Rx Nitrofurantoin Powell/M-Cryst 100 mg PO Q12HR #14 capsule 10/25/21 Unknown Rx [Macrobid CAP] Ondansetron [Zofran Odt] 4 mg PO Q8HR PRN #10 tab.rapdis 10/25/21 Unknown Rx traMADoL [Ultram] 50 mg PO Q6HR PRN #8 tablet 10/25/21 Unknown Rx ED Review of Systems ROS: Stated complaint: N/V X1 WEEK Other details as noted in HPI Comment: All other systems reviewed and negative Constitutional: denies: chills, fever Eyes: denies: eye pain, vision change ENT: denies: ear pain, throat pain Respiratory: shortness of breath. denies: cough Cardiovascular: denies: chest pain, edema Gastrointestinal: nausea, vomiting, diarrhea Genitourinary: denies: dysuria, discharge Musculoskeletal: denies: back pain, arthralgia Skin: denies: rash, lesions Neurological: denies: headache, weakness Physical Exam - Physical Exam Vital Signs: Vital Signs 10/24/21 16:42 Temperature 97.9 F Pulse Rate 62 Respiratory 18 Rate Blood Pressure 158/88 [Right] O2 Sat by Pulse 100 Oximetry Physical Exam: GENERAL: The patient is well-developed well-nourished. HENT: Normocephalic. Atraumatic. Patient has moist mucous membranes. EYES: Extraocular motions are intact. NECK: Supple. Trachea is midline. CHEST/LUNGS: Clear to auscultation. No tachypnea or accessory muscle use. There is no respiratory distress noted. HEART/CARDIOVASCULAR: Regular. There is no tachycardia. There is no murmur. ABDOMEN: Abdomen is soft, nontender. Patient has normal bowel sounds. There is no abdominal distention. SKIN: Skin is warm and dry. NEURO: The patient is awake, alert, and oriented. The patient is cooperative. The patient has no focal neurologic deficits. Normal speech. MUSCULOSKELETAL: There is no tenderness or deformity. There is no limitation range of motion. ED Course Vital Signs 10/24/21 16:42 Temperature 97.9 F Pulse Rate 62 Respiratory 18 Rate Blood Pressure 158/88 [Right] O2 Sat by Pulse 100 Oximetry ED Medical Decision Making - Lab Data Result diagrams: 10/24/21 20:29 10/24/21 20:29 Lab Results 10/24/21 10/24/21 10/24/21 Range/Units 20:29 20:29 21:10 WBC 3.1 L (4.5-11.0) K/mm3 RBC 4.91 (3.65-5.03) M/mm3 Hgb 12.3 (10.1-14.3) gm/dl Hct 40.8 (30.3-42.9) % MCV 83 (79-97) fl MCH 25 L (28-32) pg MCHC 30 (30-34) % RDW 19.2 H (13.2-15.2) % Plt Count 147 (140-440) K/mm3 Powell % (Auto) Bruise Trimmer Add Manual Diff Complete Total Counted 100 Seg Neuts % (Manual) 71.0 H (40.0-70.0) % Lymphocytes % (Manual) 17.0 (13.4-35.0) % Monocytes % (Manual) 8.0 H (0.0-7.3) % Eosinophils % (Manual) 1.0 (0.0-4.3) % Basophils % (Manual) 1.0 (0.0-1.8) % Metamyelocytes % 1.0 % Myelocytes % 1.0 % Nucleated RBC % Not Reportable Seg Neutrophils # Man 2.2 (1.8-7.7) K/mm3 Band Neutrophils # 0.0 K/mm3 Lymphocytes # (Manual) 0.5 L (1.2-5.4) K/mm3 Abs React Lymphs (Man) 0.0 K/mm3 Monocytes # (Manual) 0.2 (0.0-0.8) K/mm3 Eosinophils # (Manual) 0.0 (0.0-0.4) K/mm3 Basophils # (Manual) 0.0 (0.0-0.1) K/mm3 Metamyelocytes # 0.0 K/mm3 Myelocytes # 0.0 K/mm3 Promyelocytes # 0.0 K/mm3 Blast Cells # 0.0 K/mm3 WBC Morphology Not Reportable Hypersegmented Neuts Not Reportable Hyposegmented Neuts Not Reportable Hypogranular Neuts Not Reportable Smudge Cells Not Reportable Toxic Granulation Not Reportable Toxic Vacuolation Not Reportable Dohle Bodies Not Reportable Pelger-Huet Anomaly Not Reportable Denisse Rods Not Reportable Platelet Estimate Consistent w auto Clumped Platelets Not Reportable Plt Clumps, EDTA Not Reportable Large Platelets Not Reportable Giant Platelets Not Reportable Platelet Satelliting Not Reportable Plt Morphology Comment Not Reportable RBC Morphology Not Reportable Dimorphic RBCs Not Reportable Polychromasia Not Reportable Hypochromasia Not Reportable Poikilocytosis Not Reportable Anisocytosis 1+ Microcytosis Not Reportable Macrocytosis Not Reportable Spherocytes Not Reportable Pappenheimer Bodies Not Reportable Sickle Cells Not Reportable Target Cells Not Reportable Tear Drop Cells Not Reportable Ovalocytes Not Reportable Helmet Cells Not Reportable [place] Bodies Not Reportable [place] Rings Not Reportable [place] Cells Not Reportable Bite Cells Not Reportable Crenated Cell Not Reportable Elliptocytes Not Reportable Acanthocytes (Spur) Not Reportable Rouleaux Not Reportable Hemoglobin C Crystals Not Reportable Schistocytes Not Reportable Malaria parasites Not Reportable Luis Bodies Not Reportable Hem Pathologist Commnt No Sodium 135 L (137-145) mmol/L Potassium 5.0 (3.6-5.0) mmol/L Chloride 104.3 (98-107) mmol/L Carbon Dioxide 14 L (22-30) mmol/L Anion Gap 22 mmol/L BUN 55 H (7-17) mg/dL Creatinine 4.3 H (0.6-1.2) mg/dL Estimated GFR 12 ml/min BUN/Creatinine Ratio 13 % Glucose 84 (65-100) mg/dL Calcium 9.0 (8.4-10.2) mg/dL Total Bilirubin 0.30 (0.1-1.2) mg/dL AST 157 H (5-40) units/L ALT 136 H (7-56) units/L Alkaline Phosphatase 97 (35-129) units/L Total Protein 6.3 (6.3-8.2) g/dL Albumin 4.1 (3.9-5) g/dL Albumin/Globulin Ratio 1.9 % Lipase 66 H (13-60) units/L Urine Color Yellow (Yellow) Urine Turbidity Clear (Clear) Urine pH 5.0 (5.0-7.0) Ur Specific [place] 1.015 (1.003-1.030) Urine Protein 100 mg/dl (Negative) mg/dL Urine Glucose (UA) Neg (Negative) mg/dL Urine Ketones Neg (Negative) mg/dL Urine Blood Neg (Negative) Urine Nitrite Neg (Negative) Urine Bilirubin Neg (Negative) Urine Urobilinogen < 2.0 (<2.0) mg/dL Ur Leukocyte Esterase Tr (Negative) Urine WBC (Auto) 24.0 H (0.0-6.0) /HPF Urine RBC (Auto) 1.0 (0.0-6.0) /HPF U Epithel Cells (Auto) 10.0 (0-13.0) /HPF Urine Bacteria (Auto) 3+ (Negative) /HPF Urine Mucus Few /HPF - Radiology Data Radiology results: report reviewed CT ABDOMEN AND PELVIS WITHOUT CONTRAST INDICATION / CLINICAL INFORMATION: Abd pain, elevated LFT and lipase. TECHNIQUE: Axial CT images were obtained through the abdomen and pelvis without IV contrast. All CT scans at this location are performed using CT dose reduction for ALARA by means of automated exposure control. COMPARISON: 07/20/2021 FINDINGS: LOWER CHEST: Small bibasilar pleural effusions with bibasilar interstitial edema and atelectasis. The heart is enlarged LIVER: No significant abnormality GALLBLADDER/BILIARY TREE: Cholecystectomy. PANCREAS: No significant abnormality. No evidence of acute inflammation. SPLEEN: No significant abnormality ADRENALS: No significant abnormality KIDNEYS / URETER: Unchanged bilateral renal atrophy. No acute abnormality. URINARY BLADDER: Bladder is partially decompressed, though grossly unremarkable. REPRODUCTIVE ORGANS: No significant abnormality STOMACH / BOWEL: Small hiatal hernia. Small bowel is normal in caliber. Colonic diverticulosis without evidence of diverticulitis. The appendix is normal in caliber. LYMPH NODES: No significant adenopathy. VASCULATURE: Presumed aneurysm of the left aspect of the aorta at the level of the renal arteries and additional saccular aneurysm arising from the infrarenal abdominal aorta appear unchanged from prior study. These are not further evaluated without intravenous contrast. No evidence of acute abnormality. OTHER: No free air, free fluid, or focal fluid collection is identified. SKELETAL SYSTEM: No acute osseous findings. IMPRESSION: 1. CHF/volume overload with small bibasilar pleural effusions and interstitial edema. 2. No acute intra-abdominal abnormality. 3. Grossly stable aneurysms of the abdominal aorta, when compared to prior CT from 07/20/2021, as described above. Recommendations are unchanged. 4. Other stable chronic and incidental findings as above. - Medical Decision Making This patient presents with the complaint of some nausea with vomiting, diarrhea, intermittent shortness of breath, that has been going on for a week. On examination she has normal sounding heart and lung sounds to auscultation. She does not appear in any respiratory or acute distress. Patient's labs shows renal insufficiency consistent with her chronic kidney disease, and some new elevated LFTs with transaminitis. Urinalysis also shows a mild urinary tract infection. Initially the patient was given a dose of Zofran and a DuoNeb breathing treatment. She later started complaining of generalized pain and was given a dose of oral analgesia. She was also given a dose of Macrobid for her mild urinary tract infection. Patient had a CT scan of the abdomen and pelvis that shows a stable abdominal aortic aneurysm, but otherwise no acute abdominal or pelvic pathology. Vital signs have been reassuring throughout her ED course including being afebrile. The patient was reevaluated multiple times over multiple hours and prior to discharge the patient says that she is pain-free, and not experiencing any shortness of breath. The patient received 1 dose of antiemetic and there has been no further nausea or vomiting while in the emergency department. The patient was able to pass an oral challenge. She has good outpatient follow-up with primary care and nephrology. We discussed her lab results including the elevated LFTs. She understands that she needs to avoid any alcohol or Tylenol/acetaminophen use. She will return to the emergency department with any worsening of her symptoms or with any acute distress. Critical Care Time: No Critical care attestation.: If time is entered above; I have spent that time in minutes in the direct care of this critically ill patient, excluding procedure time. ED Disposition Clinical Impression: Body aches, Saccular aneurysm Hypertension Qualifiers: Hypertension type: primary hypertension Qualified Code(s): I10 - Essential (primary) hypertension Nausea & vomiting Qualifiers: Vomiting type: unspecified Qualified Code(s): R11.2 - Nausea with vomiting, unspecified CKD (chronic kidney disease) Qualifiers: Chronic kidney disease stage: unspecified stage Qualified Code(s): N18.9 - Chronic kidney disease, unspecified Disposition: 01 HOME / SELF CARE / HOMELESS Is pt being admited?: No Condition: Stable Instructions: Nausea and Vomiting, Adult, Chronic Kidney Disease, Adult, Hypertension, Adult, Hypertension (ED) Additional Instructions: Please follow-up with your primary care physician and colorectal surgeon. I am giving a prescription for Zofran ODT for your nausea and vomiting. You have been prescribed a medication that is sedating and therefore should not be taken prior to driving, working, and responsible for children and in no way should be mixed with alcohol of any quantity. Return to the emergency department with any worsening of your symptoms, new or concerning symptoms not addressed during this current emergency department visit, or with any acute distress. Prescriptions: Nitrofurantoin Powell/M-Cryst [Macrobid CAP] 100 mg PO Q12HR #14 capsule traMADoL [Ultram] 50 mg PO Q6HR PRN #8 tablet PRN Reason: Pain Ondansetron [Zofran Odt] 4 mg PO Q8HR PRN #10 tab.rapdis PRN Reason: Nausea Referrals: PRIMARY CARE, [Primary Care Provider] - 2-3 Days Time of Disposition: 03:07
--- NOTE | 2021-10-25 00:42 | XRay Report ---
XR chest routine 2V INDICATION / CLINICAL INFORMATION: SOB. COMPARISON: 07/20/2021 FINDINGS: SUPPORT DEVICES: None. HEART /PULMONARY VASCULATURE: Cardiac enlargement with congestion of the pulmonary vasculature. LUNGS / PLEURA: Small bibasilar pleural effusions, left greater than right. No pneumothorax. ADDITIONAL FINDINGS: No significant additional findings. IMPRESSION: CHF/volume overload with small bibasilar pleural effusions. Signer Name: Ricky Osman MD Signed: 10/25/2021 12:37 AM Workstation Name: [id number]
[2021-10-25] MEDS ORDERED: oxyCODONE /ACETAMINOPHEN 5-325MG TAB PO ONE (01:01)
[2021-10-25] MEDS ORDERED: NITROFURANTOIN MONOHYD/M-CRYST 100 MG CAP PO ONE (01:22)
--- NOTE | 2021-10-25 01:43 | Cat Scan Report ---
CT ABDOMEN AND PELVIS WITHOUT CONTRAST INDICATION / CLINICAL INFORMATION: Abd pain, elevated LFT and lipase. TECHNIQUE: Axial CT images were obtained through the abdomen and pelvis without IV contrast. All CT scans at this location are performed using CT dose reduction for ALARA by means of automated exposure control. COMPARISON: 07/20/2021 FINDINGS: LOWER CHEST: Small bibasilar pleural effusions with bibasilar interstitial edema and atelectasis. The heart is enlarged LIVER: No significant abnormality GALLBLADDER/BILIARY TREE: Cholecystectomy. PANCREAS: No significant abnormality. No evidence of acute inflammation. SPLEEN: No significant abnormality ADRENALS: No significant abnormality KIDNEYS / URETER: Unchanged bilateral renal atrophy. No acute abnormality. URINARY BLADDER: Bladder is partially decompressed, though grossly unremarkable. REPRODUCTIVE ORGANS: No significant abnormality STOMACH / BOWEL: Small hiatal hernia. Small bowel is normal in caliber. Colonic diverticulosis withou t evidence of diverticulitis. The appendix is normal in caliber. LYMPH NODES: No significant adenopathy. VASCULATURE: Presumed aneurysm of the left aspect of the aorta at the level of the renal arteries and additional saccular aneurysm arising from the infrarenal abdominal aorta appear unchanged from prior study. These are not further evaluated without intravenous contrast. No evidence of acute abnormalit y. OTHER: No free air, free fluid, or focal fluid collection is identified. SKELETAL SYSTEM: No acute osseous findings. IMPRESSION: 1. CHF/volume overload with small bibasilar pleural effusions and interstitial edema. 2. No acute intra-abdominal abnormality. 3. Grossly stable aneurysms of the abdominal aorta, when compared to prior CT from 07/20/2021, as descr ibed above. Recommendations are unchanged. 4. Other stable chronic and incidental findings as above. Signer Name: Ricky Osman MD Signed: 10/25/2021 1:39 AM Workstation Name: [id number]
== END 2021-10-25 03:27 | disposition home or self-care (01) ==
LOC: ED 16:37
DX: M79.10 Myalgia, unspecified site (principal); I72.9 Aneurysm of unspecified site; I10 Essential (primary) hypertension; R11.2 Nausea with vomiting, unspecified; N18.9 Chronic kidney disease, unspecified; Z79.899 Other long term (current) drug therapy
CPT/HCPCS: 36415; 71046; 74176; 80053; 81001; 83690; 85007; 85025; 87086; 94640; 96374; 99285; J2405